=== PATIENT | female | born 1950 | race Caucasian/White ===

== ENCOUNTER 2016-05-20 21:07 | Emergency (ER) | payer OTHER ==
[2016-05-20] MEDS ORDERED: Ondansetron INJ* 2 MG/ML VIAL IV ONE (21:14)
[2016-05-20] MEDS ORDERED: NS 0.9% 1000 ML* 1,000 ML IV ONE (21:14)
--- NOTE | 2016-05-20 22:25 | ED ---
Brooks Aguilar Matthew, scribed for Rito Moore MD on 05/20/16 at 2146 . GI/ HPI - HPI Summary HPI Summary: A 66 y/o female presents to the ED with sudden dizziness since 18:30. The patient was playing scrabble with her when she had a sudden onset of dizziness. A few minutes later, she began to have associated nausea, vomiting - - 3x, and diarrhea. The symptoms started approximately 45 minutes after dinner that consisted of salmon. Her ate the same meal at home w/o symptoms. She felt fine before this episode today. - History of Current Complaint Time Seen by Provider: 05/20/16 21:11 Stated Complaint: DIZZINESS,VOMITING Hx Obtained From: Patient Onset/Duration: Started Hours Ago, Atraumatic, Still Present Timing: Constant, Lasting Hours Severity: Moderate Current Severity: Moderate Associated Signs and Symptoms: Positive: Dizziness, Nausea, Vomiting, Diarrhea - Allergy/Home Medications Allergies/Adverse Reactions: Allergies Allergy/AdvReac Type Severity Reaction Status Date / Time No Known Allergies Allergy Unverified 10/31/14 15:56 PMH/Surg Hx/FS Hx/Imm Hx Endocrine/Hematology History: Reports: Hx Thyroid Disease - hyperparathyroid gland, Other Endocrine/Hematological Disorders - hyperparathyroidism Denies: Hx Diabetes Cardiovascular History: Reports: Hx Hypercholesterolemia Denies: Hx Hypertension, Hx Pacemaker/ICD Respiratory History: Reports: Hx Sleep Apnea GI History: Reports: Hx Gall Bladder Disease History: Reports: Hx Kidney Infection - 02 02, Hx Kidney Stones Denies: Hx Renal Disease Musculoskeletal History: Reports: Hx Arthritis Sensory History: Denies: Hx Contacts or Glasses, Hx Hearing Aid Opthamlomology History: Denies: Hx Contacts or Glasses Neurological History: Reports: Hx Migraine, Other Neuro Impairments/Disorders - neuropathy Psychiatric History: Reports: Hx Depression - 2008, OK NOW Denies: Hx Panic Disorder - Cancer History Cancer Type, Location and Year: MALIGNANT MELONOMA Hx Chemotherapy: No Hx Radiation Therapy: No - Surgical History Surgery Procedure, Year, and Place: parathyroidectomy 1998 in [place]; excision of malignant melanoma 2000; left kidney stone removal; open cholecystectomy 1994 in. [place]; repair of right knee after trauma, Right Breast Stereo -Benign. GASTRIC BYPASS- [facility] 2011 Hx Anesthesia Reactions: Yes - NAUSEA AND FLU LIKE SYMPTOMS Infectious Disease History: Denies: Hx Clostridium Difficile, Hx Hepatitis, Hx Human Immunodeficiency Virus (HIV), Hx Shingles, Hx Tuberculosis, Traveled Outside the [place] in Last 30 Days - Family History Known Family History: Positive: Hypertension - Social History Alcohol Use: Rare Substance Use Type: Reports: None Smoking Status (MU): Never Smoked Tobacco Review of Systems Constitutional: Negative Eyes: Negative ENT: Negative Cardiovascular: Negative Respiratory: Negative Positive: Vomiting, Diarrhea, Nausea Genitourinary: Negative Musculoskeletal: Negative Skin: Negative Neurological: Other - Dizziness Psychological: Normal All Other Systems Reviewed And Are Negative: Yes Physical Exam Triage Information Reviewed: Yes Vital Signs On Initial Exam: Initial Vitals Temp Pulse Resp BP Pulse Ox 98.2 F 70 16 162/87 98 05/20/16 21:20 05/20/16 21:20 05/20/16 21:20 05/20/16 21:20 05/20/16 21:20 Vital Signs Reviewed: Yes Appearance: Positive: Well-Appearing, No Pain Distress Skin: Positive: Warm Eyes: Positive: EOMI, JR ENT: Positive: Hearing grossly normal Neck: Positive: Supple Respiratory/Lung Sounds: Positive: Breath Sounds Present Cardiovascular: Positive: Normal Abdomen Description: Positive: Nontender, No Organomegaly, Soft Bowel Sounds: Positive: Present Musculoskeletal: Positive: Strength/ROM Intact Neurological: Positive: Sensory/Motor Intact, Alert, Oriented to Person Place, Time Psychiatric: Positive: Normal Diagnostics - Vital Signs Vital Signs Temp Pulse Resp BP Pulse Ox 05/20/16 21:20 98.2 F 70 16 162/87 98 - Laboratory Result Diagrams: 05/20/16 22:20 05/20/16 22:20 Lab Statement: Any lab studies that have been ordered have been reviewed, and results considered in the medical decision making process. Re-Evaluation - Re-Evaluation First Eval Change: Improved - feels well, tolerating po GIGU Course/Dx - Course Assessment/Plan: A 66 y/o female presents to the ED with sudden n/v/d and dizziness 45 minutes after eating dinner. Labs were reviewed. The patient will be discharged home and follow-up with her PCP. - Diagnoses Provider Diagnoses: Gastroenteritis Discharge - Discharge Plan Condition: Improved Disposition: HOME Patient Education Materials: Gastroenteritis (ED) Referrals: Quang Layton MD [Primary Care Provider] - 2 Days Additional Instructions: Please follow-up with your primary care physician in two days. Please maintain a bland diet. The documentation as recorded by the Brooks miller Matthew accurately reflects the service I personally performed and the decisions made by me, Rito Moore MD.
[2016-05-20 22:47] LABS: Hematocrit 41 % (35-47); Hemoglobin 13.9 g/dl (12.0-16.0); Mean Corpuscular HGB Conc 34 g/dl (31-36); Mean Corpuscular Hemoglobin 30 pg (27-31); Mean Corpuscular Volume 89 fL (80-97); Mean Platelet Volume 8 um3 (7.4-10.4); Red Blood Count 4.67 10^6/ul (4.0-5.4); Red Cell Distribution Width 14 % (10.5-15); White Blood Count 10.8 10^3/ul (3.5-10.8)
[2016-05-20 23:00] LABS: Albumin 3.8 g/dL (3.2-5.2); BUN/Creatinine Ratio 19.3 (8-20); C Reactive Protein 1.57 mg/L (< 5.00); Calcium 9.5 mg/dL (8.6-10.3); EGFR African American 58.7 (>60); EGFR Non-African American 45.7 (>60); Globulin 2.6 g/dL (2-4); Magnesium 1.7 mg/dL (1.9-2.7); Potassium 4.1 mmol/L (3.5-5.0); Total Bilirubin 0.3 mg/dL (0.2-1.0); Total Protein 6.4 g/dL (6.4-8.9)
[2016-05-20 23:39] VITALS: BP 153/76
== END 2016-05-20 23:39 | disposition home or self-care (01) ==
LOC: ED 21:07
DX: R42 Dizziness and giddiness (principal); R11.2 Nausea with vomiting, unspecified; R19.7 Diarrhea, unspecified; K52.9 Noninfective gastroenteritis and colitis, unspecified
CPT/HCPCS: 36415; 80053; 83605; 83690; 83735; 85025; 86140; 96361; 96374; 99282; J2405

== ENCOUNTER 2016-05-31 10:59 | Emergency (ER) | payer OTHER ==
[2016-05-31] MEDS ORDERED: Meclizine TAB* 12.5 MG PO ONE (11:20)
--- NOTE | 2016-05-31 11:27 | UC ---
Dizzy HPI HPI Summary: SUDDEN ONSET OF DIZZINESS AND RINGING IN RIGHT EAR TODAY WHILE SITTING AT THE COMPUTER. WORSE WITH CHANGE IN HEAD POSITION BUT DOES NOT RESOLVE EVEN WHEN STILL. NO HEARING LOSS MORE THAN BASELINE. HAS SOME NAUSEA BUT NO VOMITING OR DIARRHEA. DENIES ANY NEW MEDS OR EXPOSURES. HAD A SIMILAR EPISODE 10 DAYS AGO AND WENT TO ER. LABS WERE NORMAL. WAS DX WITH GASTROENTERITIS (PT DISAGREED WITH THIS - STATES THE VOMITING WAS DUE TO THE DIZZINESS). NO FEVER. - History Of Current Complaint Chief Complaint: UCDizziness Stated Complaint: DIZZINESS Time Seen by Provider: 05/31/16 11:20 Hx Obtained From: Patient Onset/Duration: Sudden Onset, Lasting Hours, Still Present Timing: Constant Severity Initially: Moderate Severity Currently: Moderate Pain Intensity: 0 Pain Scale Used: 0-10 Numeric Character: Dizzy Aggravating Factor(s): Position Change, Change In Head Position Alleviating Factor(s): Nothing Associated Signs And Symptoms: Positive: Nausea, Tinnitus, Unsteady Gait. Negative: Vomiting, Chest Pain, SOB, Palpitations, Visual Changes - Allergies/Home Medications Allergies/Adverse Reactions: Allergies Allergy/AdvReac Type Severity Reaction Status Date / Time No Known Allergies Allergy Unverified 05/31/16 11:15 Home Medications: Home Medications Butalb/Acetamin/Caff TAB* [Fioricet TAB*] 1 tab PO Q6H PRN 05/31/16 [History Confirmed 05/31/16] PMH/Surg Hx/FS Hx/Imm Hx Endocrine History Of: Reports: Thyroid Disease - hyperparathyroid gland - PARATHYROIDECTOMY 1998 Denies: Diabetes Cardiovascular History Of: Denies: Hypertension, Pacemaker/ICD GI/ History Of: Reports: Gall Bladder Disease, Kidney Stones Denies: Renal Disease Neurological History Of: Reports: Migraine Psychological History Of: Reports: Depression - 2008, OK NOW Cancer History Of: Denies: Breast Cancer - Surgical History Surgical History: Yes Surgery Procedure, Year, and Place: parathyroidectomy 1998 in [place]; excision of malignant melanoma 2000; left kidney stone removal; open cholecystectomy 1994 in. [place]; repair of right knee after trauma, Right Breast Stereo -Benign. GASTRIC BYPASS- [facility] 2011 - Family History Known Family History: Positive: Hypertension - Social History Alcohol Use: None Substance Use Type: None Smoking Status (MU): Never Smoked Tobacco Review of Systems Constitutional: Fatigue, Other - DIZZY Respiratory: Negative Cardiovascular: Negative Gastrointestinal: Other - NAUSEA Neurological: Other - DIZZY All Other Systems Reviewed And Are Negative: Yes Physical Exam Triage Information Reviewed: Yes Appearance: No Pain Distress, Well-Nourished, Other: - APPEARS FATIGUED Vital Signs: Initial Vital Signs Temp 97.3 F 05/31/16 11:10 Pulse 60 05/31/16 11:10 Resp 20 05/31/16 11:10 BP 191/90 05/31/16 11:10 Pulse Ox 99 05/31/16 11:10 Vital Signs Reviewed: Yes Eyes: Positive: Conjunctiva Clear ENT: Positive: Hearing grossly normal, Pharynx normal, TMs normal Neck: Positive: Supple, Nontender, No Lymphadenopathy Respiratory Exam: Normal Cardiovascular Exam: Normal Abdomen Description: Positive: Soft Musculoskeletal: Positive: No Edema Neurological: Positive: Alert, Other: - CN II-XII GROSSLY INTACT BILATERALLY. NEG PRONATOR DRIFT. FINGER TO NOSE INTACT BILATERALLY. HEEL TO [place] INTACT BILATERALLY. RAPID ALTERNATING MVMTS INTACT. 5/5 STRENGTH Psychological: Positive: Normal Response To Family, Age Appropriate Behavior Skin: Negative: rashes Dizzy Course/Dx - Course Course Of Treatment: CALLED DR. COATS - APPT JUNE 30 AT 11AM AT [facility] [address] HEAD - PT DECLINED AND STATES SHE IS GOING DIRECTLY TO PCP DR. LAYTON'S OFFICE FROM HERE. STATES SHE IS FEELING BETTER NOW. REPEAT BP 165/ 90. RX FOR MECLIZINE AND ZOFRAN. - Differential Dx/Diagnosis Provider Diagnoses: 1. DIZZINESS. 2. ELEVATED BP Discharge - Discharge Plan Condition: Stable Disposition: HOME Prescriptions: Meclizine HCl [Meclizine 25] 25 mg PO TID PRN #30 tab PRN Reason: Dizziness Ondansetron ODT TAB* [Zofran Odt TAB*] 4 mg PO Q6H PRN #20 tab.odt PRN Reason: Nausea/Vomiting Patient Education Materials: Dizziness (ED) Referrals: Quang Layton MD [Primary Care Provider] - (GO DIRECTLY TO DR. LAYTON'S OFFICE FROM HERE) Additional Instructions: GO DIRECTLY TO DR. LAYTON'S OFFICE FROM HERE FOR BP EVALUATION. BP ON ARRIVAL 191/90. REPEAT BP 165/90. WE HAVE SCHEDULED AN APPT FOR YOU WITH DR. COATS. JUNE 30 AT 11AM AT [facility] [address].
[2016-05-31 12:06] VITALS: BP 165/90
== END 2016-05-31 12:12 | disposition home or self-care (01) ==
LOC: UCEAST 10:59
DX: R42 Dizziness and giddiness (principal); R03.0 Elevated blood-pressure reading, without diagnosis of hypertension; R11.0 Nausea; Z90.49 Acquired absence of other specified parts of digestive tract; Z98.84 Bariatric surgery status
CPT/HCPCS: 99212; A9270-GY; G0463

== ENCOUNTER 2018-03-27 05:27 | Inpatient (IN) | payer OTHER, MEDICARE ==
--- NOTE | 2018-03-21 20:48 | HP ---
HISTORY AND PHYSICAL: DATE OF ADMISSION: 03/27/[address] coming into [facility] on 03/27/18 for a right total knee replacement. CHIEF COMPLAINT: Right knee pain. HISTORY OF PRESENT ILLNESS: The patient has had many years of right knee difficulties and pain and now progressive disability with severe arthritis of the right patella. She has had nonoperative care over many years including cortisone injections and the nonoperating care has been no longer helpful and knee replacement has been recommended. PAST MEDICAL HISTORY: She has had hyperparathyroidism with parathyroid surgery in 1998. She has had renal stones with removal of renal stones by Dr. Berkowitz. The patient has no history of DVT or pulmonary embolism. No history of heart attack or chest pain felt to be related to her heart. She has had bronchitis 2 years ago and pneumonia in 2017. She does not smoke. She has sips of alcoholic beverages occasionally. She has had cancer of the skin only. No bleeding tendencies. No allergies. MEDICATIONS: Her daily medications include: 1. Allopurinol 300 mg each day to discourage the formation of kidney stones. 2. Potassium bicarbonate 25 mg twice a day morning and evening. 3. Hydrochlorothiazide 25 mg is taken each day to help with migraines. 4. As needed for migraine, she takes bpphwi-Eyrajud-mehquasb 50/300/40 as needed. 5. For vertigo migraine, she will add Zofran 4 mg for nausea and meclizine 25 mg for dizziness both as needed. 6. She had a urinary tract infection on 03/08/18, she was on Bactrim for that. 7. As needed, she uses Aleve, Flintstones Vitamins, vitamin B12 and vitamin D. SOCIAL HISTORY: The patient lives with her . She has 3 floors, but her home is setup so that she can be living on one floor after her knee replacement. PHYSICAL EXAMINATION GENERAL: Well nourished, well developed, not acutely distressed. She is limping on the right side. VITAL SIGNS: The temp is 98.5, blood pressure 138/92, pulse is 68, weight 203. EXTREMITIES: The right knee has some valgus with extension -2 to 3 degrees, flexion 115 degrees. There is some tenderness anteriorly and laterally. There is anterior crepitations. MCL and LCL are stable. [place] and posterior drawer are normal. The thigh and calf are soft and nontender. NEUROVASCULAR: The foot is intact. IMPRESSION: Severe right knee patellar arthritis. There is moderate arthritis in the lateral compartment. PLAN: The plan is for her right total knee replacement. The goals, risks, and complications have been reviewed with the patient and her questions were answered. [id number]/CPS #: [id number] MTDD
[~2018-03-27 05:27] MED LIST: Buffered Lidocaine 0.9% SYRIN* 5 ML/SYR SYRINGE INTRADERM ONE; Ondansetron TAB* 4 MG PO ONE; Tranexamic Acid 1,000 MG in NS 0.9% 50 ML* (outpatient use) IV SCH
--- OUTSIDE RECORDS SUMMARY | 2018-03-27 05:31 | XMS REPORT | Continuity of Care Document ---
:1950 External Reference #:[id number] Author Name Jossie Lozano Care Team Providers Name Role Phone Santiago Layton MD Primary Care Physician Unavailable Payers Type Date Identification Numbers Payment Provider Subscriber Policy Number: [id number] [employer] Montse Fuchs Group Number: [id number] [address] PayID: [id number] [place] [address] Advance Directives Description No Information Available Problems Date Description Provider Status Onset: 06/30/2016 Idiopathic progressive polyneuropathy Brian Conti M.D. 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 ETOH Use Denies alcohol use Tobacco Use Start: Unknown Patient has never smoked Smoking Status Reviewed: 03/21/18 Patient has never smoked Exercise Type/Frequency Does not exercise Allergies, Adverse Reactions, Alerts Description No Known Drug Allergies Medications Medication Date Status Form Strength Qnty SIG Indications Ordering Provider Allopurinol Active Tablets 300mg 90tab 1 by mouth Unknown /0000 s every day Potassium Citrate Active Tablets 10Meq 90tab take one Unknown ER /0000 ER (1080 mg) s tablet twice daily Multivitamins Active Capsules 30cap 1 by mouth Unknown /0000 s every day Vitamin B-12 Active Tablets 1000mcg 90tab po once a Unknown /0000 s day Vitamin D Active Tablets 25mcg 30tab by mouth Unknown /0000 s everyday Hydrochlorothiazid Active Tablets 25mg 1 by mouth Unknown e /0000 every day Aleve Active Tablets 220mg 1 by mouth Unknown /0000 twice a day Butalbital/Acetami Active Capsules 50-300-40 take 1 Unknown nophen/Caffeine /0000 mg capsule by mouth AT Onset Of Migraine Up To twice a day if need Meclizine HCL Active Tablets 25mg 1 tablet Unknown /0000 every 8 hours as needed for vertigo Ondansetron HCL Active Tablets 4mg one by Unknown /0000 mouth every 8 hours as needed for nausea Bactrim Active Tablets 400-80mg 1/2 tab by Unknown /0000 mouth once daily Magnesium-Oxide 08/25 Hx Tablets 400(241.3 90tab 1 every day G43.109 Brian mg) mg s Gallito - M.DBailey 03/20 Percocet 10/11 Hx Tablets 5-325mg 14tab 1/2 or 1 by M17.11 Dir s mouth every Ebony, - 8 hours as M.D. 06/30 needed pain Fioricet 11/19 Hx Capsules 50-300-40 24cap 1 by mouth Brian Pichardo mg s twice a day Gallito, - as needed M.D. 03/12 headache max 2 days/wk Magnesium Oxide 11/19 Hx Tablets 400(241.3 90tab 1 every day Bailey Mg) mg s Nishi Conti M.D. 08/24 Riboflavin 11/19 Hx Tablets 400mg 100ta 1 po qd bs Nishi Conti M.DBailey 08/24 Advil Hx Capsules 200mg 200ca 4 caps po Unknown /0000 ps prn - 06/30 Lumigan Hx Unknown /0000 - 08/24 Lumigan Hx Solution 0.01% one drop at Unknown /0000 the base of - three 03/20 fingernails /2017 qd Azithromycin Hx Tablets 250mg take 2 Unknown /0000 tablets by - mouth on 03/20 day 1 then take 1 tablet on days 2 through Methylprednisolone Hx TBPK 4mg take as Unknown /0000 directed on - pack 03/20 Proair HFA 00/00 Hx Aerosol 108(90Bas inhale 2 Unknown /0000 e) puffs by - mcg/Act mouth every 03/20 4 to hours if needed for cough Medications Administered in Office Medication Date Status Form Strength Qnty SIG Indications Ordering Provider Depomedrol Administered Injection Dirk Ebony, 40MG 018 M.D. Depomedrol Administered Injection Dirk Ebony, 40MG 018 M.D. Depomedrol Administered Injection Dirk Ebony, 40MG 017 M.D. Depomedrol Administered Injection Dirk Ebony, 40MG 016 M.D. Depomedrol Administered Injection Dirk Ebony, 40MG 016 M.D. Depomedrol Administered Injection Monalisa 40MG 015 Liptak, RPA-C Depomedrol Administered Injection Dirk Ebony, 80MG 015 M.D. Immunizations Description No Information Available Vital Signs Date Vital Result Comment 03/21/2018 9:09am Height 66 inches 5'6" Weight 203.00 lb w/o shoes Heart Rate 68 /min BP Systolic Sitting 138 mmHg Lue lg cuff BP Diastolic Sitting 92 mmHg Lue lg cuff Body Temperature 98.5 F Pain Level 2 BMI (Body Mass Index) 32.8 kg/m2 01/01/2018 8:27am Height 66 inches 5'6" Weight 190.00 lb Heart Rate 74 /min BP Systolic 124 mmHg BP Diastolic 80 mmHg Respiratory Rate 18 /min Pain Level 2 BMI (Body Mass Index) 30.7 kg/m2 07/05/2017 2:28pm Height 66 inches 5'6" Weight 190.00 lb BP Systolic 124 mmHg BP Diastolic 82 mmHg Respiratory Rate 18 /min Pain Level 3 BMI (Body Mass Index) 30.7 kg/m2 05/08/2017 9:29am Height 66 inches 5'6" Weight 190.00 lb BP Systolic 126 mmHg BP Diastolic 126 mmHg Respiratory Rate 18 /min Pain Level 0 BMI (Body Mass Index) 30.7 kg/m2 04/03/2017 8:47am Height 66 inches 5'6" Weight 190.00 lb Heart Rate 68 /min BP Systolic 130 mmHg BP Diastolic 90 mmHg Respiratory Rate 16 /min Body Temperature 97.6 F Pain Level 0 BMI (Body Mass Index) 30.7 kg/m2 03/13/2017 3:37pm Height 66 inches 5'6" Weight 190.00 lb BP Systolic 122 mmHg BP Diastolic 84 mmHg Respiratory Rate 20 /min Body Temperature 97.4 F Pain Level 3 BMI (Body Mass Index) 30.7 kg/m2 08/25/2016 9:12am Height 66 inches 5'6" Weight 206.00 lb Heart Rate 78 /min BP Systolic Sitting 130 mmHg BP Diastolic Sitting 70 mmHg Respiratory Rate 16 /min BMI (Body Mass Index) 33.2 kg/m2 06/30/2016 11:05am Height 66 inches 5'6" Weight 206.12 lb Heart Rate 88 /min BP Systolic Sitting 130 mmHg BP Diastolic Sitting 80 mmHg BMI (Body Mass Index) 33.3 kg/m2 10/12/2015 9:37am Height 66 inches 5'6" Weight 190.00 lb Pain Level 6 BMI (Body Mass Index) 30.7 kg/m2 08/26/2015 1:45pm Height 66 inches 5'6" Weight 190.00 lb Heart Rate 61 /min BP Systolic 156 mmHg BP Diastolic 85 mmHg BMI (Body Mass Index) 30.7 kg/m2 04/01/2015 9:09am Height 66 inches 5'6" Weight 190.00 lb Pain Level 1 BMI (Body Mass Index) 30.7 kg/m2 12/15/2014 8:46am Height 66 inches 5'6" Weight 190.00 lb Heart Rate 79 /min BMI (Body Mass Index) 30.7 kg/m2 11/19/2013 8:44am Height 66 inches 5'6" Weight 180.00 lb Heart Rate 68 /min BP Systolic Sitting 138 mmHg BP Diastolic Sitting 80 mmHg Respiratory Rate 16 /min BMI (Body Mass Index) 29.0 kg/m2 Results Test Date Facility Test Result H/L Range Note Urine Culture And 03/19/2018 [facility] Urine Culture SEE RESULT [address] [place] [address] [phone] CBC Auto Diff 03/13/2018 [facility] White Blood 6.6 10^3/uL N 3.5-10.[address] [place] [address] [phone] Red Blood Count 4.57 10^6/uL N 4.00-5.40 Hemoglobin 14.1 g/dL N 12.0-16.0 Hematocrit 41 % N 35-47 Mean Corpuscular Volume 90 fL N 80-97 Mean Corpuscular Hemoglobin 31 pg N 27-31 Mean Corpuscular HGB Conc 34 g/dL N 31-36 Red Cell Distribution Width 15 % N 10.5-15 Platelet Count 214 10^3/uL N 150-450 Mean Platelet Volume 7.3 fL Low 7.4-10.4 Abs Neutrophils 3.2 10^3/uL N 1.5-7.7 Abs Lymphocytes 2.7 10^3/uL N 1.0-4.8 Abs Monocytes 0.4 10^3/uL N 0-0.8 Abs Eosinophils 0.2 10^3/uL N 0-0.6 Abs Basophils 0 10^3/uL N 0-0.2 Abs Nucleated RBC 0 10^3/uL Granulocyte % 48.9 % N 38-83 Lymphocyte % 40.4 % N 25-47 Monocyte % 6.3 % N 0-7 Eosinophil % 3.8 % N 0-6 Basophil % 0.6 % N 0-2 Nucleated Red Blood Cells % 0.1 Inr/Protime 03/13/2018 [facility] Inr 0.86 N 0.77-1.[address] [place] [address] [phone] Laboratory test 03/13/2018 [facility] Partial 33.1 seconds N 26.0-36.[address] [place] [address] PTT [phone] Type & Screen 03/13/2018 [facility] Patient O Positive [address] [place] [address] [phone] Antibody Screen NEGATIVE Comp Metabolic Panel 03/13/2018 [facility] Sodium 140 mmol/L N 135-[address] [place] [address] [phone] Potassium 4.1 mmol/L N 3.5-5.0 Chloride 105 mmol/L N 101-111 Co2 Carbon Dioxide 28 mmol/L N 22-32 Anion Gap 7 mmol/L N 2-11 Glucose 103 mg/dL High 70-100 Blood Urea Nitrogen 29 mg/dL High 6-24 Creatinine 1.85 mg/dL High 0.51-0.95 BUN/Creatinine Ratio 15.7 N 8-20 Calcium 10.4 mg/dL High 8.6-10.3 Total Protein 6.5 g/dL N 6.4-8.9 Albumin 4.2 g/dL N 3.2-5.2 Globulin 2.3 g/dL N 2-4 Albumin/Globulin Ratio 1.8 N 1-3 Total Bilirubin 0.30 mg/dL N 0.2-1.0 Alkaline Phosphatase 71 U/L N 34-104 Alt 19 U/L N 7-52 Ast 21 U/L N 13-39 Egfr Non- 27.4 >60 Egfr 33.1 >60 2 Urinalysis Profile 03/13/2018 [facility] Urine Color Yellow [address] [place] [address] [phone] Urine Appearance Cloudy Urine Specific Mercer 1.016 N 1.010-1.030 Urine pH 7.0 N 5-9 Urine Urobilinogen Negative Negative Urine Ketones Negative Negative Urine Protein Negative Negative Urine Leukocytes Trace Abnormal Negative Urine Blood Negative Negative * * Abnormal Negative 3 Urine Nitrite Negative Negative Urine Bilirubin Negative Negative Urine Glucose Negative Negative Urine White Blood Cell Trace(0-5/hpf) Absent Urine Red Blood Cell Trace(0-2/hpf) Absent Urine Bacteria Absent Absent Urine Squamous Epithelial Cell Present Abnormal Absent Urine Culture And 03/13/2018 [facility] Urine Culture SEE RESULT [address] [place] [address] [phone] Creatinine 07/01/2016 [facility] Creatinine 1.23 mg/dL High 0.51- [address] 0[address] [place] [address] [phone] Egfr Non- 44.0 N >60 Egfr 56.5 N >60 5 Laboratory test 07/01/2016 [facility] Thyroglobulin AB <1.8 IU/ mL N <4.0 [address] [place] [address] [phone] Miscellaneous Test See Comment N 7 Thyroid Panel 07/01/2016 [facility] Free T4 (Free 0.97 ng/dL N 0.61-1.[address] Thyroxine) [place] [address] [phone] Thyroxine 9.09 ?g/dL N 6.09-12.23 9 TSH (Thyroid Stim Horm) 1.72 mcIU/mL N 0.34-5.60 10 Laboratory test 07/01/2016 [facility] Nuclear AB <1:80 (Negative ) N [address] ([place]) [place] [address] Igg [phone] Anti Ssa/Ro Antibody <0.2 U N 12 SS-B/La Antibody <0.2 U N 13 Neutrophil Cytoplasmic 07/01/2016 [facility] C-Anca Negative N Negative AB [address] [place] [address] [phone] P-Anca Negative N Negative 14 Lipoprotein 07/01/2016 [facility] Lipoprotein <6 mg/dL N <=30 15 Profile/[place] Lp(a) [address] [place] [address] [phone] 1 SEE RESULT BELOW Name: MONTSE FUCHS : [address]: Micky Berkowitz MD Acct: [id number] Unit: [id number] AGE: 67 Location: LAB Re03/19/18 SEX: F Status: REG REF SPEC: [id number] CHARLY: 03/19/[address]: Micky Berkowitz MD REQ: [id number] RECD: 03/19/18 STATUS: COMP OTHR DR: Juno Beck MD _ SOURCE: URINE SPDESC: ORDERED: Urine Culture QUERIES: Urine Source: Clean Catch Procedure Result Reported Site Urine Culture Final 03/20/18- 12 ML No Growth (<1,000 CFU/mL) * ML - Main Lab . END OF REPORT DEPARTMENT OF PATHOLOGY, [address] [place] [address] Edilberto Jacobson M.D. Director [facility] # [id number] 2 Because ethnic data is not always readily available, this report includes an eGFR for both -Americans and non- Americans. The National Kidney Disease Education Program (NKDEP) does not endorse the use of the MDRD equation for patients that are not between the ages of 18 and 70, are , have extremes of body size, muscle mass, or nutritional status, or are non- or non-. According to the National Kidney Foundation, irrespective of diagnosis, the stage of the disease is based on the level of kidney function: Stage Description GFR(mL/min/1.73 m(2)) 1 Kidney damage with normal or decreased GFR 90 2 Kidney damage with mild decrease in GFR 60-89 3 Moderate decrease in GFR 30-59 4 Severe decrease in GFR 15-29 5 Kidney failure <15 (or dialysis) 3 *Ascorbic acid is present which may interfere with detection of blood. 4 SEE RESULT BELOW Name: MONTSE FUCHS : [address]: Juno Beck MD Acct: [id number] Unit: [id number] AGE: 67 Location: [facility] Re03/13/18 SEX: F Status: REG REF SPEC: [id number] CHARLY: 03/13/18 [facility] DR: Juno Beck MD REQ: [id number] RECD: 03/13/18 STATUS: COMP _ SOURCE: URINE SPDESC: ORDERED: Urine Culture QUERIES: Urine Source: Clean Catch Procedure Result Reported Site Urine Culture Final 03/14/18- 0848 ML No Growth (<1,000 CFU/mL) * ML - Main Lab . END OF REPORT DEPARTMENT OF PATHOLOGY, [address] [place] [address] Edilberto Jacobson M.D. Director [facility] # [id number] 5 Because ethnic data is not always readily available, this report includes an eGFR for both -Americans and non- Americans. The National Kidney Disease Education Program (NKDEP) does not endorse the use of the MDRD equation for patients that are not between the ages of 18 and 70, are , have extremes of body size, muscle mass, or nutritional status, or are non- or non-. According to the National Kidney Foundation, irrespective of diagnosis, the stage of the disease is based on the level of kidney function: Stage Description GFR(mL/min/1.73 m(2)) 1 Kidney damage with normal or decreased GFR 90 2 Kidney damage with mild decrease in GFR 60-89 3 Moderate decrease in GFR 30-59 4 Severe decrease in GFR 15-29 5 Kidney failure <15 (or dialysis) 6 ADDITIONAL INFORMATION The thyroglobulin antibody testing method is an immunoenzymatic assay manufactured by [employer] and performed on the [employer] DXI 800. Values obtained from different assay methods or kits may be different and cannot be used interchangeably. The results cannot be interpreted as absolute evidence for the presence or absence of malignant disease. Test Performed by: [address] [address] 7 Test Result Flag Unit RefValue Fatty Acid Profile, Comprehensive,S Octanoic Acid, C8:0 8 nmol/mL 8-47 Decenoic Acid, C10:1 2.5 nmol/mL 1.8-5.0 Decanoic Acid, C10:0 7 nmol/mL 2-18 Lauroleic Acid, C12:1 3.5 nmol/mL 1.4-6.6 Lauric Acid, C12:0 35 nmol/mL 6-90 Tetradecadienoic Acid, 2.0 nmol/mL 0.8-5.0 C14:2 Myristoleic Acid, C14:1 49 nmol/mL 3-64 Myristic Acid, C14:0 341 nmol/mL 30-450 Hexadecadienoic Acid, 28 nmol/mL 10-48 C16:2 Hexadecenoic Acid, 99 nmol/mL 25-105 C16:1w9 Palmitoleic Acid, 562 nmol/mL 110-1130 C16:1w7 Palmitic Acid, C16:0 3517 nmol/mL 5782-5973 g-Linolenic Acid, 79 nmol/mL 16-150 C18:3w6 a-Linolenic Acid, 98 nmol/mL 50-130 C18:3w3 Linoleic Acid, C18:2w6 3058 nmol/mL 6647-7387 Oleic Acid, C18:1w9 3096 nmol/mL 650-3500 Vaccenic Acid, C18:1w7 420 nmol/mL 280-740 Stearic Acid, C18:0 1118 nmol/mL 590-1170 EPA, C20:5w3 74 nmol/mL 14-100 Arachidonic Acid, 733 nmol/mL 520-1490 C20:4w6 Gambell Acid, C20:3w9 27 nmol/mL 7-30 e-t-Tvnhatqtu Acid, 159 nmol/mL 50-250 C20:3w6 Arachidic Acid, C20:0 37 L nmol/mL 50-90 DHA, C22:6w3 229 nmol/mL 30-250 DPA, C22:5w6 43 nmol/mL 10-70 DPA, C22:5w3 75 nmol/mL 20-210 DTA, C22:4w6 40 nmol/mL 10-80 Docosenoic Acid, C22:1 8 nmol/mL 4-13 Docosanoic Acid, C22:0 75.1 nmol/mL 0.0-96.3 Nervonic Acid, C24:1w9 88 nmol/mL 60-100 Tetracosanoic Acid, 53.3 nmol/mL 0.0-91.4 C24:0 Hexacosenoic Acid, C26:1 0.4 nmol/mL 0.3-0.7 Hexacosanoic Acid, C26:0 0.53 nmol/mL 0.00-1.30 Pristanic Acid, 0.25 nmol/mL 0.00-2.98 C15:0(CH3)4 Phytanic Acid, 1.51 nmol/mL 0.00-9.88 C16:0(CH3)4 Triene Tetraene Ratio 0.037 REFERENCE VALUE 0.010-0.038 Total Saturated 5.2 mmol/L 2.5-5.5 Total Monounsaturated 4.3 mmol/L 1.3-5.8 Total Polyunsaturated 4.6 mmol/L 3.2-5.8 Total w3 0.5 mmol/L 0.2-0.5 Total w6 4.1 mmol/L 3.0-5.4 Total Fatty Acids 14.2 mmol/L 7.3-16.8 Interpretation See Comment In this sample, the fatty acid profile was essentially normal. ADDITIONAL INFORMATION Gas Chromatography-Mass Spectrometry (GC-MS) Stable Isotope Dilution Analysis This test was developed and its performance characteristics determined by [facility] in a manner consistent with CLIA requirements. This test has not been cleared or approved by the U.S. Food and Drug Administration. Test Performed by: [facility] - [address] [address] 8 Copy Result to: SANTIAGO LAYTON ([id number]) 9 Copy Result to: SANTIAGO LAYTON ([id number]) 10 Copy Result to: SANTIAGO LAYTON ([id number]) 11 <1:80 (Negative) REFERENCE VALUE <1:80 (Negative) Test Performed by: [facility] - [address] [address] 12 REFERENCE VALUE <1.0 (Negative) Test Performed by: [facility] - [address] [address] 13 REFERENCE VALUE <1.0 (Negative) Test Performed by: [address] [address] 14 Negative for cANCA and pANCA patterns by immunofluorescence. ADDITIONAL INFORMATION This test was developed and its performance characteristics determined by [facility] in a manner consistent with CLIA requirements. This test has not been cleared or approved by the U.S. Food and Drug Administration. Test Performed by: [address] [address] Test Performed by: [address] [address] Procedures Date Code Description Status 01/01/2018 Inject/Drain Joint/Bursa Major W/O US Completed 07/05/2017 Inject/Drain Joint/Bursa Major W/O US Completed 04/03/2017 37585 FX Patella Care Completed 03/13/2017 Inject/Drain Joint/Bursa Major W/O US Completed 06/14/2016 33682 Holter Monitor Review (24 hr)dr review & interp only Completed 06/13/2016 69529 ECG Monitor/Recording W/Visual Superimposition Scanning Completed 06/10/2016 85173253 Mammogram Completed 10/12/2015 Inject/Drain Joint/Bursa Major W/O US Completed 08/26/2015 Inject/Drain Joint/Bursa Major W/O US Completed 04/01/2015 Inject/Drain Joint/Bursa Major W/O US Completed 12/15/2014 Inject/Drain Joint/Bursa Major W/O US Completed 03/21/2012 79423 EKG, Interpretation Only Completed 11/18/2011 69920 Polysomnography Sleep Staging 4+ Parameters W/Cpap Completed 12/23/2008 98084 ECHO Transthorasic Realtime 2D W Doppler & Color Flow Completed Hosp Encounters Type Date Location Provider Dx Diagnosis Office Visit 01/01/2018 Orthopedic Juno Beck M.D. M17.11 Unilateral primary 8:30a [facility] oste[facility], right knee Office Visit 07/05/2017 Poly Beck M.D. M17.11 Unilateral primary 2:15p [facility] osteoarthritis, right knee S82.001D Unsp fx right patella, subs for clos fx w routn heal Office Visit 08/25/2016 Neurohospitalist Brian Pichardo G60.3 Idiopathic 9:00a Clinic Malinda Conti progressive neuropathy G43.109 Migraine with aura, not intractable, w/o status migrainosus H93.19 Tinnitus, unspecified ear Office Visit 06/30/2016 Neurohospitalist Brian Pichardo G60.3 Idiopathic 11:00a Clinic [facility] Conti progressive neuropathy R42 Dizziness and giddiness H90.3 Sensorineural hearing loss, bilateral G43.109 Migraine with aura, not intractable, w/o status migrainosus Office Visit 10/12/2015 Orthopedic Dirk Ebony, M17.11 Unilateral primary 9:30a [facility] osteoarthritis, right [facility] knee Office Visit 04/01/2015 Orthopedic Monalisa M17.11 Unilateral primary 9:00a [facility] osteoarthritis, right [facility] knee Office Visit 12/15/2014 Orthopedic Juno Beck, 715.96 Osteoarthrosis Unspec 8:30a [facility] Lower Leg Office Visit 11/19/2013 [place] Brian Jorge ABailey 346.00 Migraine Classical 8:30a Neurologic Malinda Conti W/O Intractable W/O [facility] Status Migrainosus 356.4 Polyneuropathy Idiopathic Progress Office Visit 11/25/2011 3:53p Azar Rivera 327.23 Obstructive Sleep Disorder [facility] Askew Apnea Adult & Pediatric V67.59 Exam Follow Up Other Office Visit 10/28/2011 11:48a Azar Rivera 786.09 Dyspnea & Disorder [facility] Abnormalities Other 780.1 Hallucinations Office Visit 12/24/2008 12:15a [facility] Serg 682.6 Cellulitis & Assoc,pc Malinda So Abscess Leg Hospitalists Except Foot Office Visit 12/22/2008 12:45a [facility] Willa Moreno 682.9 Cellulitis & Assoc,carmen Petty Abscess Unspec Hospitalists Site Plan of Treatment Future Appointment(s):04/25/2018 10:30 am - Juno Beck M.D. at [facility]03/27/2018 7:30 am - MELISSA Ackerman at [facility]03/27/2018 7:30 am - Juno Beck M.D. at [facility]
[2018-03-27] MEDS ORDERED: DiMENhydriNATE IV* 50 MG/ML VIAL IV PUSH PRN (05:45)
[2018-03-27] MEDS ORDERED: Naloxone* 0.4 MG/ML 1 ML VIAL IV PRN (05:45)
[2018-03-27] MEDS ORDERED: Morphine VIAL* 4 MG/ML VIAL (1 ml vial) IV PRN ×2 (05:45→11:13)
[2018-03-27] MEDS ORDERED: PROCHLORPERAZINE INJ 5 MG/ML 2 ML VIAL IV PRN (05:45)
[2018-03-27] MEDS ORDERED: oxyCODONE/Acetamin 5/325 MG* TAB PO PRN ×2 (05:45→11:13)
[2018-03-27] MEDS ORDERED: fentaNYL* 50 MCG/ML 2 ML VIAL (100 MCG VIAL) IV PRN (05:45)
[2018-03-27] MEDS ORDERED: Famotidine IV* 10 MG/ML 2 ML (20 mg) IV ONE (06:00)
[2018-03-27] MEDS ORDERED: Dexamethasone TAB* 4 MG PO ONE (06:00)
[2018-03-27] MEDS ORDERED: Gabapentin CAP(*) 300 MG PO ONE (06:00)
[2018-03-27] MEDS ORDERED: Gabapentin CAP(*) 300 MG ONE (06:19)
[2018-03-27] MEDS ORDERED: Famotidine IV* 10 MG/ML 2 ML (20 mg) ONE (06:19)
[2018-03-27] MEDS ORDERED: Ondansetron ODT TAB* 4 MG ONE (06:19)
[2018-03-27] MEDS ORDERED: Dexamethasone TAB* 4 MG ONE (06:20)
[2018-03-27] MEDS ORDERED: ceFAZolin 2 GM PREMIX in ORs 2 GM/50 ML BAG IVPB ONE (06:20)
[2018-03-27] MEDS ORDERED: fentaNYL* 50 MCG/ML 2 ML VIAL (100 MCG VIAL) ONE (07:15)
[2018-03-27] MEDS ORDERED: KETAMINE HCL* 50 MG/ML 10 ML VIAL ONE (07:16)
[2018-03-27] MEDS ORDERED: Midazolam* 1 MG/ML 5 ML VIAL (5 MG) ONE (07:16)
[2018-03-27] MEDS ORDERED: Bupivacaine 0.5% W/EPI SDV* 30 ML VIAL ONE (08:58)
[2018-03-27] MEDS ORDERED: Midazolam* 1 MG/ML 2 ML VIAL (2 MG) ONE (09:40)
[2018-03-27] MEDS ORDERED: Propofol* 10 MG/ML 20 ML BTL ONE (10:59)
[2018-03-27] MEDS ORDERED: Propofol* 500 MG/50 ML BTL ONE (11:00)
[2018-03-27] MEDS ORDERED: Bupivacaine 0.5% SDV PF* 30ML VIAL ONE (11:00)
[2018-03-27] MEDS ORDERED: Phenylephrine INJ* 10 MG/ML 1 ML VIAL (10 MG) ONE (11:00)
[2018-03-27] MEDS ORDERED: Scopolamine 1.5 mg* PATCH ONE (11:00)
[2018-03-27] MEDS ORDERED: Cyclobenzaprine TAB* 10 MG PO PRN (11:13)
[2018-03-27] MEDS ORDERED: Acetaminophen TAB* 325 MG PO PRN (11:13)
[2018-03-27] MEDS ORDERED: Ondansetron ODT TAB* 4 MG PO PRN ×2 (11:13→11:25)
[2018-03-27] MEDS ORDERED: traMADol TAB* 50 MG PO PRN (11:13)
[2018-03-27] MEDS ORDERED: oxyCODONE TAB* 5 MG TAB PO PRN (11:13)
[2018-03-27] MEDS ORDERED: Ondansetron TAB* 4 MG PO PRN (11:13)
[2018-03-27] MEDS ORDERED: Docusate CAP* 100 MG PO PRN (11:21)
[2018-03-27] MEDS ORDERED: Meclizine TAB* 12.5 MG PO PRN (11:25)
[2018-03-27] MEDS ORDERED: Butalb/Acetamin/Caff TAB* 1 TAB PO PRN (11:25)
[2018-03-27] MEDS ORDERED: oxyCODONE/Acetamin 5/325 MG* TAB ONE (12:49)
[2018-03-27] MEDS: oxyCODONE/Acetamin 5/325 MG* TAB PO PRN ×3 (12:50→23:26)
[2018-03-27] MEDS: Sulfamethox/Trimethoprim SS 400/80* TAB PO SCH (14:53)
--- NOTE | 2018-03-27 15:35 | PN ---
Progress Note - Progress Note Date of Service: 03/27/18 SOAP: Patient seen POD [address] Beck. Her pain is well controlled, DF/PF intact, Dp2+. She has no complaints at this time
[2018-03-27] MEDS: ceFAZolin 1 GM in Dextrose (*) 1 GM/50 ML BAG IVPB SCH (19:14)
[2018-03-27] MEDS: Potassium EFFERVESCENT TAB* 25 MEQ TAB.EFF PO SCH (20:58)
[2018-03-27] MEDS: Hydrochlorothiazide TAB* 25 MG PO SCH (20:59)
[2018-03-28] MEDS: ceFAZolin 1 GM in Dextrose (*) 1 GM/50 ML BAG IVPB SCH ×2 (02:16→09:54)
[2018-03-28] MEDS: oxyCODONE/Acetamin 5/325 MG* TAB PO PRN ×4 (03:55→21:33)
[2018-03-28 06:58] LABS: Hematocrit 37 % (35-47); Hemoglobin 12.5 g/dl (12.0-16.0); Mean Platelet Volume 7.3 fL (7.4-10.4); Platelet Count 175 10^3/ul (150-450)
[2018-03-28 07:26] LABS: EGFR Non-African American 40.7 (>60)
--- NOTE | 2018-03-28 08:19 | PN ---
Progress Note - Progress Note Date of Service: 03/28/18 Note: VSStable. Awake, alert, cooperative, breathing easily. X-ray post op right knee all satisfactory. I and O are good. Hct 37%. She has renal insufficiency. 2 drains removed right knee, dressing is dry. Able to lift right leg and move right ankle up and down, DP pulse is 2 plus right. Impression: Doing well following right total knee. Plans: Drinking, incentive spirometer and up with walker.
[2018-03-28] MEDS: Potassium EFFERVESCENT TAB* 25 MEQ TAB.EFF PO SCH ×2 (09:06→21:33)
[2018-03-28] MEDS: Multivitamins/Minerals TAB PO SCH (09:06)
[2018-03-28] MEDS: Allopurinol TAB* 300 MG PO SCH (09:06)
[2018-03-28] MEDS: Aspirin TAB* 325 MG PO SCH (09:06)
[2018-03-28] MEDS: Cyanocobalamin TAB* 500 MCG PO SCH (09:06)
[2018-03-28] MEDS: Sulfamethox/Trimethoprim SS 400/80* TAB PO SCH (09:54)
--- NOTE | 2018-03-28 13:13 | OP ---
CC: Dr. Layton * DATE OF OPERATION: 03/27/18 - ROOM #334 DATE OF : 54 SURGICAL CARE: Right knee. SURGEON: Juno Beck MD ASSISTANTS: 1. MELISSA Ackerman, first aid teacher. 2. Yanira Kaba, certified surgical assistant. ANESTHESIOLOGIST: Dr. Rito Weaver. ANESTHESIA: Right femoral canal block and spinal. PRE-OP DIAGNOSIS: Right knee severe arthritis, patellar and lateral. POST-OP DIAGNOSIS: Right knee severe arthritis, patellar and lateral. OPERATIVE PROCEDURE: Right total knee replacement. COMPONENTS UTILIZED: The Kemar Persona knee was utilized. All components were cemented. A size 7 femur, a size 35 patella, a size E tibia with a small extension and a 10 mm articular surface. All components were cemented. COMPLICATIONS: There were no complications. DRAINS: Two drains right knee at the end of the case. ESTIMATED BLOOD LOSS: 200 mL and replacement crystalloid fluids. OPERATIVE INDICATION: Severe arthritis of the right knee. She has had it for many years. It has been no longer responsive to nonoperative care. DESCRIPTION OF PROCEDURE: The patient was brought to the operating room and placed on the operating room table in a supine position following the administration of the anesthetics. The patient was returned to the supine position. A Magaña catheter was inserted. The right proximal thigh was wrapped with a tourniquet. The right leg was prepped from the tourniquet to the tips of the toes after a preliminary chlorhexidine prep. After prepping, draping, and sealing off, we did our universal protocol time-out confirming Montse Fuchs and a plan for right total knee replacement. We all agreed and we proceeded. Her previous right knee skin incision was utilized for this surgery going from just 2 fingerbreadths proximal to the superior pole of the patella to the medial aspect of the tibial tubercle. Skin and subcu were divided down to the prepatellar bursa. The knee was then entered medial parapatellar and the knee had some clear synovial fluid, yellowish. The anteromedial soft tissues on the tibia were divided down to the bone 2 cm medial to the tibial tubercle. We stayed subperiosteally or going around to the deep MCL and then to the posteromedial corner of the knee. Where we entered the knee medial parapatellar, there was some bone fragment in the soft tissues that was excised, this was from old patellar dislocation laterally where the medial bone had pulled off. The quad tendon was divided at the junction of the rectus femoris and the vastus medialis, staying as close to vastus medialis muscle as possible going 3 to 4 cm proximal to the superior pole of the patella. The patient had severe patellar arthritis with woqy-oj-murj, large osteophytes on the patella and the lateral femoral condyle. There was severe arthritis in the lateral compartment as well with umsv-xv-ouyl and osteophytes. The remains of the anterior horn of the medial meniscus were carefully excised. The infrapatellar fat pad was excised. The osteophytes on the patella and trochlea removed. The distal anterior femur was exposed subperiosteally for referencing and measuring. The lateral meniscus was carefully excised with careful attention to hemostasis in the region of the lateral geniculate. The ACL and PCL were uplifted from their femoral origins. The tibia was made so that it could be subluxated forward from under femur and the PCL was carefully excised. Great care was taken while working posteriorly with careful hemostasis. The proximal tibial cut was made first. Our goal here was to have a tibial cut that would be perpendicular to the long axis of the tibia, have a slight posterior slope, removing a few millimeters of bone from both plateaus. After this, the femoral intramedullary drill was utilized. The femoral canal was entered. The femoral canal was suctioned to discourage embolization. The distal femoral cutting guide was applied on 0 with 6 degrees of valgus and the distal femoral cut was completed and the extension gap was very satisfactory for a 10. The femur was then measured for a size 7 and the anterior, posterior , and chamfering cuts were completed. We finished removal of the posterior horn medial meniscus carefully preserving the MCL, ACL, and PCL once again and the lateral meniscus more peripherally. At this point, we had nice ligamentous balance of 90 degrees of flexion for a 10 mm gap as well. The femur was completed with the intercondylar cutout. The femoral canal was cleaned x6 and suctioned empty and a bone plug was inserted. The tibia was then completed for a size E. The knee was then articulated and extended with an E- tibia 10 articular surface and the size 7 femur with full knee extension, stable ligaments in extension, stable ligaments in 90 degrees of flexion. The osteophytes, we finished removal of those, the patella was cut flat. A 35 was chosen. Three drill holes were made and these were undercut, a lateral release was not necessary. The leg was then exsanguinated, the tourniquet elevated to 275. The final components were checked and opened. The cement was mixed and the components were cemented into position in the patella followed by tibia followed by femur, each was impacted, excess cement was removed, and the knee was articulated and extended during the final hardening. After hardening, we checked posteriorly for retained cement fragments. The tourniquet was deflated. We infiltrated the pericapsular soft tissues with Marcaine 0.5% with epinephrine posteromedially, medially, and laterally. Careful closure was done with irrigation several times. During closure with saline, the drains were brought out. The superolateral suprapatellar pouch, the quad mechanism closed with interrupted #1 zbzyqh-qc-ufvao Vicryl down to the distal end of the medial retinaculum and then 0 Vicryl after that. Deep fascia and deep subcu closed with 0 Vicryl. The superficial subcu closed with 3 -0 Vicryl and the skin was then closed with cipriano. The knee was washed and dried. Everything was dressed with Betadine soaked release and sterile Webril, cryotherapy cuff, ABD pads, and then an Michele bandage loosely applied. The patient 's dorsalis pedis pulse was 2+ at the end of the case. The patient has a callus on her right great toe plantar medial to the IP joint. This had a punctate opening in it and I explored this with a small hemostat and it was completely dry. This area was dressed with Betadine soaked release as well and Yolanda. The patient was returned to the recovery room in stable and satisfactory condition having tolerated the procedure very well. Also, the knee was put through range of movement several times during the closure, flexing well past 125 degrees during those flexions and showing full extension. [id number]/[facility] #: [id number] [facility]
[2018-03-28] MEDS: Hydrochlorothiazide TAB* 25 MG PO SCH (21:33)
[2018-03-29] MEDS: oxyCODONE/Acetamin 5/325 MG* TAB PO PRN ×3 (01:39→10:23)
[2018-03-29 06:49] LABS: Hematocrit 34 % (35-47); Hemoglobin 11.5 g/dl (12.0-16.0); Mean Platelet Volume 7.2 fL (7.4-10.4); Platelet Count 153 10^3/ul (150-450)
[2018-03-29 07:06] LABS: EGFR Non-African American 41.1 (>60)
[2018-03-29 07:48] VITALS: BP 126/54
[2018-03-29] MEDS: Potassium EFFERVESCENT TAB* 25 MEQ TAB.EFF PO SCH (08:31)
[2018-03-29] MEDS: Sulfamethox/Trimethoprim SS 400/80* TAB PO SCH (08:32)
[2018-03-29] MEDS: Cyanocobalamin TAB* 500 MCG PO SCH (08:32)
[2018-03-29] MEDS: Multivitamins/Minerals TAB PO SCH (08:32)
[2018-03-29] MEDS: Aspirin TAB* 325 MG PO SCH (08:32)
[2018-03-29] MEDS: Allopurinol TAB* 300 MG PO SCH (08:32)
--- NOTE | 2018-03-29 08:40 | PN ---
Progress Note - Progress Note Date of Service: 03/29/18 Note: POD #2 98.5 F. VSStable, awake, alert, cooperative and breathing easily. Ambulated in the vivar very well. Dressing changed, knee washed soap and water. All redressed telfa, betadine solution. Able to Straight leg lift and N/V right foot is intact. Hct is 34%. Imp: Stable, acute blood loss anemia. Plans: Probably home later today.
[2018-03-29] MEDS ORDERED: Magnesium Hydroxide LIQ* 30 ML UDC PO SCH (21:00)
--- NOTE | 2018-03-29 23:55 | DS ---
DISCHARGE SUMMARY: DATE OF ADMISSION: 03/27/18 DATE OF DISCHARGE: 03/29/18 DATE OF OPERATION: 03/27/18 SURGEON: Juno Beck MD.* (DICTATED BY MELISSA DIGGS) CREATIVE RESOURCE MANAGER: MELISSA Diggs PRE-OP DIAGNOSIS: Right knee severe arthritis, patellar and lateral. OPERATIVE PROCEDURE: Right total knee arthroplasty. HISTORY: Ms. Fuchs is a 67-year-old female with years of increasingly severe right knee pain. She elected to undergo right total knee arthroplasty. HOSPITAL COURSE: The patient was admitted to [facility] on . She underwent a right total knee arthroplasty without complication. On postop day 1, she is well appearing, in no acute distress. Two drains were removed from her knee. The dressing was dry. She is able to lift the right leg and move ankle up and down. DP pulses 2+ on the right. On postop day 2, she was again well appearing, in no acute distress. Dressing was changed. Able to straight leg raise. Neurovascularly, intact distally. Hematocrit was 34%. Vital signs include temperature 98.3, pulse rate 61, respiratory rate 12, oxygen saturation 99%, blood pressure 126/54. DISCHARGE MEDICATIONS: 1. Allopurinol 300 mg p.o. q.a.m. 2. Vitamin B12 1000 mcg sublingual daily. 3. Potassium bicarbonate 25 mEq p.o. b.i.d. 4. Hydrochlorothiazide 25 mg p.o. at bedtime. 5. Vitamin D3 1000 units p.o. q.a.m. 6. [place] vitamins chewable 1 tab q.a.m. 7. Meclizine 12.5 mg p.o. once p.r.n. 8. Butalbital, acetaminophen, caffeine 50/300/40 one cap p.o. once p.r.n. 9. Bactrim resume home dose until prescription finished. 10. Zofran 4 mg p.o. q.6 p.r.n. 11. Acetaminophen 975 mg p.o. q.8 hours p.r.n. 12. Aspirin 325 mg daily for 30 days for DVT prophylaxis. 13. Docusate 100 mg p.o. b.i.d. p.r.n. 14. Percocet 5/325 one to two tabs every 4 to 6 hours as needed for pain, max daily dose of 8. DISCHARGE INSTRUCTIONS: Weightbearing as tolerated and continue physical therapy and occupational therapy. Aspirin 325 mg daily for 30 days to prevent blood clots. Pain control, Percocet 5/325 one to two tabs every 4 to 6 hours as needed for pain, max dose 8 tabs per day. Follow up with Dr. Beck in 4 to 6 weeks. She is discharged to home. MELISSA DIGGS [id number]/[facility] #: [id number] [facility]
[2018-03-30] MEDS ORDERED: Scopolamine PATCH Remove* 1 NOTE MISC PATCH OFF SCH (11:00)
== END 2018-03-29 11:05 | disposition home or self-care (01) | DRG 470 ==
LOC: AA 05:27 → SSU 12:44
PROVIDERS: ADMIT Orthopaedic Surgery; ATTEND Orthopaedic Surgery
PROC: 0SRC0J9 Replacement of Right Knee Joint with Synthetic Substitute, Cemented, Open Approach (ICD-10-PCS; principal; 2018-03-27 07:30)
DX: M17.11 Unilateral primary osteoarthritis, right knee (principal); D62 Acute posthemorrhagic anemia; E21.3 Hyperparathyroidism, unspecified; M21.061 Valgus deformity, not elsewhere classified, right knee; I10 Essential (primary) hypertension; E78.5 Hyperlipidemia, unspecified; G43.109 Migraine with aura, not intractable, without status migrainosus; M25.761 Osteophyte, right knee; G60.8 Other hereditary and idiopathic neuropathies; G47.33 Obstructive sleep apnea (adult) (pediatric); Z85.820 Personal history of malignant melanoma of skin; Z87.442 Personal history of urinary calculi; Z72.89 Other problems related to lifestyle; Z87.01 Personal history of pneumonia (recurrent); Z87.440 Personal history of urinary (tract) infections; Z86.010 Personal history of colon polyps; N28.9 Disorder of kidney and ureter, unspecified
CPT/HCPCS: 36415; 80048; 85014; 85018; 85049; 88305; 88311; A9270-GY; G8978-GP-CL; G8979-GP-CI; G8987-GO-CJ; G8988-GO-CI; G8988-GO-CJ; G8989-GO-CJ; J0690; J2250; J2704; J3010; J8540

== ENCOUNTER 2018-06-26 16:05 | Observation (INO) | payer OTHER ==
--- OUTSIDE RECORDS SUMMARY | 2018-06-26 16:34 | XMS REPORT | Continuity of Care Document ---
:1950 External Reference #:[id number] Author Name Jossie Lozano Care Team Providers Name Role Phone Santiago Layton MD Primary Care Physician Unavailable Payers Date Identification Numbers Payment Provider Subscriber Policy Number: [id number] [employer] Montse Barrow Group Number: [id number] [id number] PayID: [id number] [place] [address] Advance Directives Description No Information Available Problems Date Description Provider Status Onset: 06/30/2016 Idiopathic progressive polyneuropathy Brian Conti M.D. Active Onset: 04/05/2018 Arthroplasty of knee Yordan Anderson MD Active Onset: 03/30/2018 Localized, primary osteoarthritis Vanessa Clark M.D. 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 ETOH Use Denies alcohol use Tobacco Use Start: Unknown Patient has never smoked Smoking Status Reviewed: 05/30/18 Patient has never smoked Exercise Type/Frequency Does not exercise Allergies, Adverse Reactions, Alerts Description No Known Drug Allergies Medications Medication Date Status Form Strength Qnty SIG Indications Ordering Provider Allopurinol 00 Active Tablets 300mg 90tab 1 by mouth Unknown /0000 s every day Potassium Citrate 0000 Active Tablets 10Meq 90tab take one Unknown ER /0000 ER (1080 mg) s tablet twice daily Multivitamins 00 Active Capsules 30cap 1 by mouth Unknown /0000 s every day Vitamin B-12 Active Tablets 1000mcg 90tab po once a Unknown /0000 s day Vitamin D Active Tablets 25mcg 30tab by mouth Unknown /0000 s everyday Hydrochlorothiazid Active Tablets 25mg 1 by mouth Unknown e / every day Aleve Active Tablets 220mg 1 [...] tab by Unknown /0000 mouth once daily Tylenol 8 Hour Active Tablets 650mg 1 tab every Unknown /0000 ER 6 hours as needed for pain Keflex 04/09 Hx Capsules 500mg 28cap 1 by mouth Z96.651 s 4 times a Eduardo, - day for 7 M.D. Percocet 04/05 Hx Tablets 5-325mg 42tab 1-2 tabs by Z96.651 Dir s mouth every Ebony, - 6 hours as M.D. 05/30 needed pain Keflex 03/30 Hx Capsules 500mg 30cap by mouth M17.11 s every 8 Eduardo, - hours x 10 M.D. continue from prior prescriptio n Magnesium-Oxide 08/25 Hx Tablets 400(241.3 90tab 1 every day G43.109 Brian S. mg) mg s Gallito, - M.D. 03/20 Percocet 10/11 Hx Tablets 5-325mg 14tab 1/2 or 1 by M17.11 s mouth every Ebony, - 8 hours as M.D. 06/30 needed pain Fioricet 11/19 Hx Capsules 50-300-40 24cap 1 by mouth Brian S. mg s twice a day Gallito, - as needed M.D. 03/12 headache max 2 days/wk Magnesium Oxide 11/19 Hx Tablets 400(241.3 90tab 1 every day Mg) mg s Nishi Conti M.D. 08/24 Riboflavin 11/19 Hx Tablets 400mg 100ta 1 po qd bs Nishi Conti M.D. 08/24 Advil Hx Capsules 200mg 200ca 4 caps po Unknown /0000 ps prn - 06/30 Lumigan Hx Unknown /0000 - 08/24 Lumigan Hx Solution 0.01% one drop at Unknown /0000 the base of - three 03/20 fingernails /2017 qd Azithromycin Hx Tablets 250mg take 2 Unknown /0000 tablets by - mouth on 03/20 day 1 take 1 tablet on days 2 through Hx TBPK 4mg take as Unknown /0000 directed on - pack 03/20 Proair HFA Hx Aerosol 108(90Bas inhale 2 Unknown /0000 [...] Available Vital Signs Date Vital Result Comment 05/30/2018 3:06pm Height 66 inches 5'6" Weight 203.00 lb BP Systolic 140 mmHg BP Diastolic 86 mmHg Body Temperature 98.3 F Pain Level 4 Weight Bearing BMI (Body Mass Index) 32.8 kg/m2 04/25/2018 10:24am Height 66 inches 5'6" Weight 203.00 lb BP Systolic 124 mmHg BP Diastolic 70 mmHg Respiratory Rate 20 /min Body Temperature 97.8 F Pain Level 2 BMI (Body Mass Index) 32.8 kg/m2 04/16/2018 9:53am Height 66 inches 5'6" Weight 203.00 lb BP Systolic 122 mmHg BP Diastolic 68 mmHg Respiratory Rate 20 /min Body Temperature 97.9 F Pain Level 0 BMI (Body Mass Index) 32.8 kg/m2 04/09/2018 9:35am Height 66 inches 5'6" Weight 203.00 lb BP Systolic 117 mmHg BP Diastolic 67 mmHg Respiratory Rate 16 /min Body Temperature 98.0 F Pain Level 4 BMI (Body Mass Index) 32.8 kg/m2 04/05/2018 10:33am Height 66 inches 5'6" Weight 203.00 lb BP Systolic 110 mmHg BP Diastolic 60 mmHg Respiratory Rate 18 /min Body Temperature 98.1 F Pain Level 3 BMI (Body Mass Index) 32.8 kg/m2 04/02/2018 11:27am Height 66 inches 5'6" Weight 203.00 lb Body Temperature 97.6 F Pain Level 9 BMI (Body Mass Index) 32.8 kg/m2 03/30/2018 2:40pm Height 66 inches 5'6" Heart Rate 78 /min BP Systolic 118 mmHg BP Diastolic 78 mmHg Respiratory Rate 18 /min Body Temperature 99.8 F Pain Level 3 03/21/2018 9:09am Height 66 inches 5'6" Weight [...] H/L Range Note Urine Culture And 03/19/2018 [facility] Urine Culture SEE RESULT [address] [place] [address] [phone] CBC Auto Diff 03/13/2018 [facility] White Blood 6.6 10^3/uL N 3.5-10.[address] [place] [address] [phone] Red Blood Count 4.57 10^6/uL N 4.00-5.40 [...] Red Blood Cells % 0.1 Inr/Protime 03/13/2018 [facility] Inr 0.86 N 0.77-1.[address] [place] [address] [phone] Laboratory test 03/13/2018 [facility] Partial 33.1 seconds N 26.0-36.[address] [place] [address] PTT [phone] Type & Screen 03/13/2018 [facility] Patient O [place] [address] [phone] Antibody Screen NEGATIVE Comp Metabolic Panel 03/13/2018 [facility] Sodium 140 mmol/L N 135-[address] [place] [address] [phone] Potassium 4.1 mmol/L N 3.5-5.0 Chloride 105 [...] Egfr 33.1 >60 2 Urinalysis Profile 03/13/2018 [facility] Urine Color Yellow [address] [place] [address] [phone] Urine Appearance Cloudy Urine Specific [place] 1.016 N 1.010-1.030 Urine pH 7.0 N [...] Present Abnormal Absent Urine Culture And 03/13/2018 [facility] Urine Culture SEE RESULT [address] [place] [address] [phone] Creatinine 07/01/2016 [facility] Creatinine 1.23 mg/dL High 0.51- [address] 0[address] [place] [address] [phone] Egfr Non- 44.0 N >60 Egfr 56.5 N >60 5 Laboratory test 07/01/2016 [facility] Thyroglobulin AB <1.8 IU/ mL N <4.0 [address] [place] [address] [phone] Miscellaneous Test See Comment N 7 Thyroid Panel 07/01/2016 [facility] Free T4 (Free 0.97 ng/dL N 0.61-1.[address] Thyroxine) [place] [address] [phone] Thyroxine 9.09 ?g/dL N 6.09-12.23 9 TSH (Thyroid Stim Horm) 1.72 mcIU/mL N 0.34-5.60 10 Laboratory test 07/01/2016 [facility] Nuclear AB <1:80 (Negative ) N [address] ([place]) [place] [address] Igg [phone] Anti Ssa/Ro Antibody <0.2 U N 12 SS-B/La Antibody <0.2 U N 13 Neutrophil Cytoplasmic 07/01/2016 [facility] C-Anca Negative N Negative AB [address] [place] [address] [phone] P-Anca Negative N Negative 14 Lipoprotein 07/01/2016 [facility] Lipoprotein <6 mg/dL N <=30 15 Profile/[place] Lp(a) [address] [place] [address] [phone] 1 SEE RESULT BELOW Name: VIVIANAMONTSE THOMAS Ashley : [address]: Micky Berkowitz MD Acct: [id number] Unit: [id number] AGE: 67 Location: LAB Re03/19/18 SEX: F Status: REG REF SPEC: [id number] CHARLY: 03/19/[address] [facility] [address]: Micky Berkowitz MD REQ: [id number] RECD: 03/19/18 STATUS: SERVANDO RIVERA DR: Juno Beck MD _ SOURCE: URINE SPDESC: ORDERED: Urine Culture QUERIES: Urine Source: Clean Catch Procedure Result Reported Site Urine Culture Final 03/20/18811 ML No Growth (<1,000 CFU/mL) * ML - Main Lab . END OF REPORT DEPARTMENT OF PATHOLOGY, [address] [place] [address] Edilberto Jacobson M.D. Director [facility] # [id number] 2 Because ethnic data is not always [...] blood. 4 SEE RESULT BELOW Name: MONTSE BARROW : [address]: Juno Beck MD Acct: [id number] Unit: [id number] AGE: 67 Location: [facility] Re03/13/18 SEX: F Status: REG REF SPEC: [id number] CHARLY: 03/13/[address]: Juno Beck MD REQ: [id number] RECD: 03/13/18 STATUS: COMP _ SOURCE: URINE SPDESC: ORDERED: Urine Culture QUERIES: Urine Source: Clean Catch Procedure Result Reported Site Urine Culture Final 03/14/18- 0848 ML No Growth (<1,000 CFU/mL) * ML - Main Lab . END OF REPORT DEPARTMENT OF PATHOLOGY, [address] [place] [address] Edilberto Jacobson M.D. Director [facility] # [id number] 5 Because ethnic data is not always [...] method is an immunoenzymatic assay manufactured by [employer] and performed on the [employer] DXI 800. Values obtained from different assay methods or kits may be different and cannot be used interchangeably. The results cannot be interpreted as absolute evidence for the presence or absence of malignant disease. Test Performed by: [facility] [employer] [address] [facility] [address] [place] [id number] 7 Test Result Flag Unit RefValue Fatty [...] 110-1130 C16:1w7 Palmitic Acid, C16:0 3517 nmol/mL 7566-2626 g-Linolenic Acid, 79 nmol/mL 16-150 C18:3w6 a-Linolenic Acid, 98 nmol/mL 50-130 C18:3w3 Linoleic Acid, C18:2w6 3058 nmol/mL 8353-1999 Oleic Acid, C18:1w9 3096 nmol/mL 650-3500 Vaccenic Acid, C18:1w7 420 nmol/mL 280-740 Stearic Acid, C18:0 1118 nmol/mL 590-1170 EPA, C20:5w3 74 nmol/mL 14-100 Arachidonic Acid, 733 nmol/mL 520-1490 C20:4w6 Hunt Acid, C20:3w9 27 nmol/mL 7-30 a-a-Gingxropw Acid, 159 nmol/mL 50-250 C20:3w6 Arachidic Acid, [...] developed and its performance characteristics determined by [facility] in a manner consistent with CLIA requirements. This test has not been cleared or approved by the U.S. Food and Drug Administration. Test Performed by: [facility] [place] [address] 8 Copy Result to: SANTIAGO LAYTON ([id number]) 9 Copy Result to: SANTIAGO LAYTON ([id number]) 10 Copy Result to: SANTIAGO LAYTON ([id number]) 11 <1:80 (Negative) REFERENCE VALUE <1:80 (Negative) Test Performed by: [facility] - [address] [address] 12 REFERENCE VALUE <1.0 (Negative) Test Performed by: [place] [address] 13 REFERENCE VALUE <1.0 (Negative) Test Performed by: [place] [address] 14 Negative for cANCA and pANCA patterns by immunofluorescence. ADDITIONAL INFORMATION This test was developed and its performance characteristics determined by [facility] in a manner consistent with CLIA requirements. This test has not been cleared or approved by the U.S. Food and Drug Administration. Test Performed by: [facility] [address] [place] [address] 15 Test Performed by: [facility] [address] [place] [address] Procedures Date Code Description Status 03/27/2018 40171 TKR Total Knee Replacement Completed 03/27/2018 59049 TKR Total Knee Replacement Completed 03/27/2018 39765 TKR Total Knee Replacement Completed 01/01/201847961 Inject/Drain Joint/Bursa Major W/O US Completed 07/05/201749481 Inject/Drain Joint/Bursa Major W/O US Completed 04/03/2017 00460 FX Patella Care Completed 03/13/201799762 Inject/Drain Joint/Bursa Major W/O US Completed 06/14/2016 86192 Holter Monitor Review (24 hr)dr review & interp only Completed 06/13/2016 02402 ECG Monitor/Recording W/Visual Superimposition Scanning Completed 06/10/2016 16596599 Mammogram Completed 10/12/201579104 Inject/Drain Joint/Bursa Major W/O US Completed 08/26/2015 85928 Inject/Drain Joint/Bursa Major W/O US Completed 04/01/201542600 Inject/Drain Joint/Bursa Major W/O US Completed 12/15/201490587 Inject/Drain Joint/Bursa Major W/O US Completed 03/21/2012 02828 EKG, Interpretation Only Completed 11/18/2011 60048 Polysomnography Sleep Staging 4+ Parameters W/Cpap Completed 12/23/2008 44237 ECHO Transthorasic Realtime 2D W Doppler & Color Flow Completed Hosp Encounters Type Date Location Provider Dx Diagnosis Office Visit 01/01/2018 Orthopedic Juno Beck M.D. M17.11 Unilateral primary 8:30a Services Of [facility] osteoarthritis, right knee Office Visit 07/05/2017 Orthopedic Juno Beck M.D. M17.11 Unilateral primary 2:15p Services [...] w/o status migrainosus Office Visit 10/12/2015 Orthopedic Juno Beck, M17.11 Unilateral primary 9:30a Services Of [place] osteoarthritis, right C.M.A. knee Office Visit 04/01/2015 Orthopedic Monalisa M17.11 Unilateral primary 9:00a Services Of [facility] Dillard osteoarthritis, right C.M.A. knee Office Visit 12/15/2014 Orthopedic Juno Beck, 715.96 Osteoarthrosis Unspec 8:30a Services Of [place] Genlztere Or Localized C.M.A. Lower Leg Office Visit 11/19/2013 Alfalfajustine Pichardo 346.00 Migraine Classical 8:30a Neurologic [place] Conti W/O Intractable W/O Services Of [facility] Status Migrainosus 356.4 Polyneuropathy Idiopathic Progress Office Visit 11/25/2011 3:53p Azar Rivera 327.23 Obstructive Sleep Disorder Center [facility] Askew Apnea Adult & Pediatric V67.59 Exam Follow Up Other Office Visit 10/28/2011 11:48a Azar Rivera 786.09 Dyspnea & Disorder [facility] Abnormalities Other 780.1 Hallucinations Office Visit 12/24/2008 12:15a [facility]erg 682.6 Cellulitis & Assoc,pc [place] So Abscess Leg Hospitalists Except Foot Office Visit 12/22/2008 12:45a [facility] Willa Moreno 682.9 Cellulitis & Assoccarmen M.D. Abscess Unspec Hospitalists Site Plan of Treatment 05/30/2018 - Juno Beck M.D.S76.111A Strain of right quadriceps muscle, fascia and tendon, initiaFollow up:Follow up: 2-3 weeks Your knee needs relative rest Use ice 20 minutes at a time up to three times a day OK to use aleve 2 tablets up to twice a day Back off on the physical therapy and be careful on the bus rides
--- OUTSIDE RECORDS SUMMARY | 2018-06-26 16:34 | XMS REPORT | Continuity of Care Document ---
:1950 External Reference #:[id number] Author Name Becka Edge Care Team Providers Name Role Phone Santiago Layton MD Primary Care Physician Unavailable Payers Date Identification Numbers Payment Provider Subscriber Policy Number: [id number] [employer] Montse Barrow Group Number: [id number] [id number] PayID: [id number] [place] [address] Advance Directives Description No Information Available Problems Date Description Provider Status Onset: 06/30/2016 Idiopathic progressive polyneuropathy Brian Conti M.D. Active Onset: 04/05/2018 Arthroplasty of knee Yordan Anderson MD Active Onset: 03/30/2018 Localized, primary osteoarthritis Vanessa Clark M.D. 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 spasms. Allopurinol Active Tablets 300mg 90tab 1 by [...] by mouth Unknown e /0000 every day Butalbital/Acetami Active Capsules 50-300-40 30cap take 1 Brian Marino nophen/Caffeine / mg s capsule by Gallito, mouth at M.D. onset of migraine up to twice a day if need. Max 2 caps/day Meclizine HCL Active Tablets 25mg 1 tablet [...] Hx Tablets 400(241.3 90tab 1 every day M54.2 Brian Pichardo /2017 mg) mg s Gallito, - M.D. 03/20 Percocet 10/11 Hx Tablets 5-325mg 14tab 1/2 or 1 by M17.11 s mouth every Ebony, - 8 hours as M.D. 06/30 needed pain Fioricet 11/19 Hx Capsules 50-300-40 24cap 1 by mouth mg s twice a day Nishi Conti as needed M.DBailey 03/12 max 2 days/wk Magnesium Oxide 11/19 Hx Tablets 400(241.3 90tab 1 every day Mg) mg s Nishi Conti M.DBailey 08/24 Riboflavin 11/19 Hx Tablets 400mg 100ta 1 po qd bs Nishi Conti M.DBailey 08/24 Advil Hx Capsules 200mg 200ca 4 caps po Unknown /0000 ps prn - 06/30 Lumigan Hx Unknown /0000 - 08/24 Lumigan Hx Solution 0.01% one drop at Unknown /0000 the base of - three 03/20 fingernails qd Aleve Hx Tablets 220mg 1 by mouth Unknown /0000 twice a day - 06/14 Azithromycin Hx Tablets 250mg take 2 Unknown [...] Available Vital Signs Date Vital Result Comment 06/15/2018 8:08am Height 66 inches 5'6" Weight 195.00 lb BP Systolic 140 mmHg BP Diastolic 90 mmHg BMI (Body Mass Index) 31.5 kg/m2 05/30/2018 3:06pm Height 66 inches 5'6" Weight [...] H/L Range Note Urine Culture And 03/19/2018 [facility] Urine Culture SEE RESULT [address] [place] [address] [phone] CBC Auto Diff 03/13/2018 [facility] White Blood 6.6 10^3/uL N 3.5-10.[address] [place] [address] [phone] Red Blood Count 4.57 10^6/uL N 4.00-5.40 [...] 0-2 Nucleated Red Blood Cells % 0.1 Urine Culture And 03/13/2018 [facility] Urine Culture SEE RESULT [address] [place] [address] [phone] Urinalysis Profile 03/13/2018 [facility] Urine Color Yellow [address] [place] [address] [phone] Urine Appearance Cloudy Urine Specific [place] 1.016 N 1.010-1.030 Urine pH 7.0 N [...] Urine Squamous Epithelial Cell Present Abnormal Absent Inr/Protime 03/13/2018 [facility] Inr 0.86 N 0.77-1.[address] [place], [place] [address] [phone] Laboratory test 03/13/2018 [facility] Partial 33.1 seconds N 26.0-36.[address] [address] PTT [phone] Type & Screen 03/13/2018 [facility] Patient O Positive [address] [address] [phone] Antibody Screen NEGATIVE Comp Metabolic Panel 03/13/2018 [facility] Sodium 140 mmol/L N 135-[address] [place], [place] [address] [phone] Potassium 4.1 mmol/L N 3.5-5.0 Chloride 105 [...] Egfr Non- 27.4 >60 Egfr 33.1 >60 4 Lipoprotein 07/01/2016 [facility] Lipoprotein <6 mg/dL N <=30 5 Profile/[address] Profile Apo a Lp(a) [place], [place] [address] [phone] Neutrophil 07/01/2016 [facility] C-Anca Negative N Negative Cytoplasmic [place] [address] [phone] P-Anca Negative N Negative 6 Laboratory test 07/01/2016 [facility] Nuclear AB <1:80 (Negative ) N 7 finding ([place]) [place] [address] Igg [phone] Anti Ssa/Ro Antibody <0.2 U N 8 SS-B/La Antibody <0.2 U N 9 Thyroid Panel 07/01/2016 [facility] Free T4 (Free 0.97 ng/dL N 0.61-1.[address] Thyroxine) [place] [address] [phone] Thyroxine 9.09 ?g/dL N 6.09-12.23 11 TSH (Thyroid Stim Horm) 1.72 mcIU/mL N 0.34-5.60 12 Laboratory test 07/01/2016 [facility] Thyroglobulin AB <1.8 IU/ mL N <4.0 [address] [place] [address] [phone] Miscellaneous Test See Comment N 14 Creatinine 07/01/2016 [facility] Creatinine 1.23 mg/dL High 0.51-0.95 [place] [address] [phone] Egfr Non- 44.0 N >60 Egfr 56.5 N >60 15 1 SEE RESULT BELOW Name: MONTSE BARROW : [address]: Micky Berkowitz MD Acct: [id number] Unit: [id number] AGE: 67 Location: LAB Re03/19/18 SEX: F Status: REG REF SPEC: [id number] CHARLY: 03/19/18 [facility] DR: Micky Berkowitz MD REQ: [id number] RECD: 03/19/18 STATUS: SERVANDO RIVERA DR: Juno Beck MD _ SOURCE: URINE SPDESC: ORDERED: Urine Culture QUERIES: Urine Source: Clean Catch Procedure Result Reported Site Urine Culture Final 03/20/18- 811 ML No Growth (<1,000 CFU/mL) * ML - Main Lab . END OF REPORT DEPARTMENT OF PATHOLOGY, [address] [place] [address] Edilberto Jacobson M.D. Director BRY # [id number] 2 SEE RESULT BELOW Name: MONTSE BARROW : [address]: Juno Beck MD Acct: [id number] Unit: [id number] AGE: 67 Location: [facility] Re03/13/18 SEX: F Status: REG REF SPEC: [id number] CHARLY: 03/13/18 [facility] DR: Juno Beck MD REQ: [id number] RECD: 03/13/18 STATUS: COMP _ SOURCE: URINE SPDESC: ORDERED: Urine Culture QUERIES: Urine Source: Clean Catch Procedure Result Reported Site Urine Culture Final 03/14/18- 0848 ML No Growth (<1,000 CFU/mL) * ML - Main Lab . END OF REPORT DEPARTMENT OF PATHOLOGY, [address] [place] [address] Edilberto Jacobson M.D. Director [facility] # [id number] 3 *Ascorbic acid is present which may interfere with detection of blood. 4 Because ethnic data is not always readily [...] 15-29 5 Kidney failure <15 (or dialysis) 5 Test Performed by: [address] [address] 6 Negative for cANCA and pANCA patterns by immunofluorescence. ADDITIONAL INFORMATION This test was developed and its performance characteristics determined by [facility] in a manner consistent with CLIA requirements. This test has not been cleared or approved by the U.S. Food and Drug Administration. Test Performed by: [place] [id number] 7 <1:80 (Negative) REFERENCE VALUE <1:80 (Negative) Test Performed by: [facility] [place] [address] 8 REFERENCE VALUE <1.0 (Negative) Test Performed by: [place] [id number] REFERENCE VALUE <1.0 (Negative) Test Performed by: [place] [address] 10 Copy Result to: SANTIAGO LAYTON ([id number]) 11 Copy Result to: SANTIAGO LAYTON ([id number]) 12 Copy Result to: SANTIAGO LAYTON ([id number]) 13 ADDITIONAL INFORMATION The thyroglobulin antibody testing method is an immunoenzymatic assay manufactured by [employer] and performed on the [employer] DXI 800. Values obtained from different assay methods or kits may be different and cannot be used interchangeably. The results cannot be interpreted as absolute evidence for the presence or absence of malignant disease. Test Performed by: [place] [address] 14 Test Result Flag Unit RefValue Fatty Acid [...] 110-1130 C16:1w7 Palmitic Acid, C16:0 3517 nmol/mL 3622-1331 g-Linolenic Acid, 79 nmol/mL 16-150 C18:3w6 a-Linolenic Acid, 98 nmol/mL 50-130 C18:3w3 Linoleic Acid, C18:2w6 3058 nmol/mL 1109-9919 Oleic Acid, C18:1w9 3096 nmol/mL 650-3500 Vaccenic Acid, C18:1w7 420 nmol/mL 280-740 Stearic Acid, C18:0 1118 nmol/mL 590-1170 EPA, C20:5w3 74 nmol/mL 14-100 Arachidonic Acid, 733 nmol/mL 520-1490 C20:4w6 Ovett Acid, C20:3w9 27 nmol/mL 7-30 j-r-Jiwdvkhpn Acid, 159 nmol/mL 50-250 C20:3w6 Arachidic Acid, [...] developed and its performance characteristics determined by [facility] in a manner consistent with CLIA requirements. This test has not been cleared or approved by the U.S. Food and Drug Administration. Test Performed by: [address] [address] 15 Because ethnic data is not always readily [...] 15-29 5 Kidney failure <15 (or dialysis) Procedures Date Code Description Status 03/27/2018 78542 TKR Total Knee Replacement Completed 03/27/2018 34730 TKR Total Knee Replacement Completed 03/27/2018 40938 TKR Total Knee Replacement Completed 01/01/201804323 Inject/Drain Joint/Bursa Major W/O US Completed 07/05/201790778 Inject/Drain Joint/Bursa Major W/O US Completed 04/03/2017 50074 FX Patella Care Completed 03/13/201730914 Inject/Drain Joint/Bursa Major W/O US Completed 06/14/2016 62612 Holter Monitor Review (24 hr)dr franco & tristian only Completed 06/13/2016 16440 ECG Monitor/Recording W/Visual Superimposition Scanning Completed 06/10/2016 19243714 Mammogram Completed 10/12/2015 Inject/Drain Joint/Bursa Major W/O US Completed 08/26/201554063 Inject/Drain Joint/Bursa Major W/O US Completed 04/01/201583275 Inject/Drain Joint/Bursa Major W/O US Completed 12/15/2014 Inject/Drain Joint/Bursa Major W/O US Completed 03/21/2012 24566 EKG, Interpretation Only Completed 11/18/2011 86601 Polysomnography Sleep Staging 4+ Parameters W/Cpap Completed 12/23/2008 58319 ECHO Transthorasic Realtime 2D W Doppler & Color Flow Completed Hosp Encounters Type Date Location Provider Dx Diagnosis Office Visit 01/01/2018 Orthopedic Juno Beck M.D. M17.11 Unilateral primary 8:30a [facility] osteoarthritis, right knee Office Visit 07/05/2017 Orthopedic [...] Brian Pichardo G60.3 Idiopathic 11:00a Clinic [facility] Cnoti progressive neuropathy R42 Dizziness and giddiness H90.3 Sensorineural hearing loss, bilateral G43.109 Migraine with aura, not intractable, w/o status migrainosus Office Visit 10/12/2015 Orthopedic Juno Beck M17.11 Unilateral primary 9:30a Services [facility] osteoarthritis, right [facility] knee Office Visit 04/01/2015 Orthopedic Monalisa M17.11 Unilateral primary 9:00a Services [facility] NATO Dillard osteoarthritis, right [facility]. knee Office Visit 12/15/2014 Orthopedic Juno Beck, 715.96 Osteoarthrosis Unspec 8:30a Services [facility] Sequeira Or Localized [facility] Lower Leg Office Visit 11/19/2013 Joe Pichardo 346.00 Migraine Classical 8:30a Neurologic [facility] Conti W/O Intractable W/O Services Of Can Reconditioner Status Migrainosus 356.4 Polyneuropathy Idiopathic Progress Office Visit 11/25/2011 3:53p Azar Rivera 327.23 Obstruct[facility] Askew [facility] Pediatric V67.59 Exam Follow Up Other Office Visit 10/28/2011 11:48a Azar Rivera 786.09 Dyspnea & Disorder [facility] Abnormalities Other 780.1 Hallucinations Office Visit 12/24/2008 12:15a [place] Keith Ulrich 682.6 [facility],carmen So M.D. Abscess Leg Hospitalists Except Foot Office Visit 12/22/2008 12:45a [facility] Willa Moreno, 682.9 Cellulitis & Asscarmen jean M.D. Abscess Unspec Hospitalists Site Plan of Treatment Future Appointment(s):07/03/2018 9:00 am - Arnav Santana NP at [facility]06/15/2018 - Arnav Satnana NPM54.2 CervicalgiaNew Medication: Cyclobenzaprine HCL 5 mg - Take 1 tab q hs,for muscle spasms.New Therapy: Physical IumtdseJ99 HeadacheFollow up:2-4 WEEKS
--- NOTE | 2018-06-26 16:44 | ED ---
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 The patient reports that she had an MRI done the morning of 06/26/18 and after the results Dr. Conti recommended that she come to the ED for further testing. At triage the patient rated her pain as a 3/ 10 in severity. She claims that her neck pain has worsened in the past two months on her left side, and there has been a new onset daily migraine for the past two weeks. She reports that turning her head would aggravate her pain. She also reports that she often has left kidney infections and is unsure if she has a kidney infection currently. She reports taking Tylenol since she aggravated her knee post knee replacement surgery, but it has not alleviated her pain. Vital signs while in room HR: 79 bpm, O2 Sat: 100, BP: 179/98. - History of Current Complaint Chief Complaint: EDNeckComplaint Stated Complaint: HAD MRI, DR LOCKWOOD, COME TO ER, INFECTION PER PT Time Seen by Provider: 06/26/18 16:30 Hx Obtained From: Patient Onset/Duration Of Injury/Symptoms: Months Mechanism Of Injury: No Known Trauma Timing: Constant, Lasting Weeks Onset/Duration: Gradual Onset, Started weeks ago, Still Present Severity Initially: Mild Severity Currently: Moderate Pain Intensity: 3 Pain Scale Used: 0-10 Numeric Location: Diffuse - left neck Character: Other: - worsening neck pain with daily migraines Aggravating Factors: Nothing Alleviating Factors: Nothing Associated Signs & Symptoms: Negative: Fever - Allergies/Home Medications Allergies/Adverse Reactions: Allergies Allergy/AdvReac Type Severity Reaction Status Date / Time No Known Allergies Allergy Unverified 06/26/18 16:06 Home Medications: Home Medications Ped Multivit 43/Iron Fumarate [Flintstones Complete Chew Tab] 36 mg PO QAM 06/26 [History Confirmed 06/26/18] PMH/Surg Hx/FS Hx/Imm Hx Previously Healthy: No Endocrine/Hematology History: Reports: Hx Thyroid Disease - hyperparathyroid gland - PARATHYROIDECTOMY 1998, Other Endocrine/Hematological Disorders - hyperparathyroidism Denies: Hx Diabetes Cardiovascular History: Reports: Hx Hypercholesterolemia Denies: Hx Hypertension, Hx Pacemaker/ICD Respiratory History: Reports: Hx Sleep Apnea GI History: Reports: Hx Gall Bladder Disease History: Reports: Hx Kidney Infection - 10 12, Hx Kidney Stones Denies: Hx Renal Disease Musculoskeletal History: Reports: Hx Arthritis Sensory History: Reports: Hx Cataracts - STARTING PER PATIENT, Hx Hearing Aid Denies: Hx Contacts or Glasses Opthamlomology History: Reports: Hx Cataracts - STARTING PER PATIENT Denies: Hx Contacts or Glasses Neurological History: Reports: Hx Migraine, Hx Nerve Disease, Other Neuro Impairments/Disorders - neuropathy Psychiatric History: Reports: Hx Depression - 2008, OK NOW Denies: Hx Panic Disorder - Cancer History Cancer Type, Location and Year: MELANOMA. BASAL. MOHOS - UPPER LIP Hx Chemotherapy: No Hx Radiation Therapy: No - Surgical History Surgery Procedure, Year, and Place: parathyroidectomy 1998 in [place]; excision of malignant melanoma 2000; left kidney stone removal; open cholecystectomy 1994 in. [place]; repair of right knee after trauma, Rt KNEE REPLACEMENT - 08/09. Right Breast Stereo 06/18/12-Benign. GASTRIC BYPASS- [facility] 2011 Hx Anesthesia Reactions: Yes - NAUSEA AND FLU LIKE SYMPTOMS Infectious Disease History: No Infectious Disease History: Denies: Hx Clostridium Difficile, Hx Hepatitis, Hx Human Immunodeficiency Virus (HIV), Hx Shingles, Hx Tuberculosis, Traveled Outside the in Last 30 Days - Family History Known Family History: Positive: Hypertension - Social History Alcohol Use: None Substance Use Type: Reports: None Smoking Status (MU): Never Smoked Tobacco Review of Systems Negative: Fever Positive: Other - Positive: neck pain Positive: Myalgia - neck pain Neurological: Other - positive: daily migraines All Other Systems Reviewed And Are Negative: Yes Physical Exam - Summary Physical Exam Summary: Appearance: The patient is well-nourished in no acute distress and in no acute pain. Skin: The skin is warm and dry and skin color reflects adequate perfusion. HEENT: The head is normocephalic and atraumatic. The pupils are equal and reactive. The conjunctivae are clear and without drainage. Nares are patent and without drainage. Mouth reveals moist mucous membranes and the throat is without erythema and exudate. The external ears are intact. The ear canals are patent and without drainage. The tympanic membranes are intact. Neck: The neck is supple with full range of motion and non-tender. There are no carotid bruits. There is no neck vein distension. Respiratory: Chest is non-tender. Lungs are clear to auscultation and breath sounds are symmetrical and equal. Cardiovascular: Heart is regular rate and rhythm. There is no murmur or rub auscultated. There is no peripheral edema and pulses are symmetrical and equal. Abdomen: The abdomen is soft and non-tender. There are normal bowel sounds heard in all four quadrants and there is no organomegaly palpated. Musculoskeletal: There is no back tenderness noted. Extremities are non-tender with full range of motion. There is good capillary refill. There is no peripheral edema or calf tenderness elicited. Neurological: Patient is alert and oriented to person, place and time. The patient has symmetrical motor strength in all four extremities. Cranial nerves are grossly intact. Deep tendon reflexes are symmetrical and equal in all four extremities. Psychiatric: The patient has an appropriate affect and does not exhibit any anxiety or depression. Triage Information Reviewed: Yes Vital Signs On Initial Exam: Initial Vitals Temp Pulse Resp BP Pulse Ox 97.8 F 84 16 163/99 99 06/26/18 16:07 06/26/18 16:07 06/26/18 16:07 06/26/18 16:07 06/26/18 16:07 Vital Signs Reviewed: Yes Diagnostics - Vital Signs Vital Signs Temp Pulse Resp BP Pulse Ox 06/26/18 16:07 97.8 F 84 16 163/99 99 - Laboratory Result Diagrams: 06/26/18 16:45 06/27/18 04:57 Lab Statement: Any lab studies that have been ordered have been reviewed, and results considered in the medical decision making process. Neck Course/Dx - Course Course Of Treatment: Ms. Fuchs was nontoxic in appearance on arrival but clearly in pain. She was given IV pain medications while labs were obtained and noted to be WNL. Dr. Vidal was contacted and requested a CT and CTA which were obtained. He came to the department to evaluate the patient and determine the course. - Diagnoses Provider Diagnoses: Neck pain, Radiculopathy affecting upper extremity - Physician Notifications Discussed Care Of Patient With: Jeanna Stout Time Discussed With Above Provider: 18:00 Instructed by Provider To: Other - Recommended further testing Discharge - Sign-Out/Discharge Documenting (check all that apply): Sign-Out Patient Signing out patient TO: Arti Marshall - Discharge Plan Condition: Stable Disposition: ADMITTED TO [facility] - Billing Disposition and Condition Condition: STABLE Disposition: Admitted to [facility] - Attestation Statements Document Initiated by Scribe: Yes Documenting Scribe: Molina Pena Provider For Whom Emilia is Documenting (Include Credential): Brady Skelton MD Scribe Attestation: Molina Aguilar, scribed for Brady Skelton MD on 06/27/18 at 0929. Scribe Documentation Reviewed: Yes Provider Attestation: The documentation as recorded by the Molina miller accurately reflects the service I personally performed and the decisions made by me, Brady Skelton MD Status of Scribe Document: Viewed
[2018-06-26 17:04] LABS: ABS Basophils 0 10^3/ul (0-0.2); ABS Eosinophils 0.2 10^3/ul (0-0.6); ABS Lymphocytes 2.1 10^3/ul (1.0-4.8); ABS Monocytes 0.5 10^3/ul (0-0.8); ABS Neutrophils 3.5 10^3/ul (1.5-7.7); ABS Nucleated RBC 0 10^3/ul; Eosinophil % 2.5 %; Hematocrit 41 % (35-47); Hemoglobin 13.5 g/dl (12.0-16.0); Lymphocyte % 33.5 %; Mean Corpuscular HGB Conc 33 g/dl (31-36); Mean Corpuscular Hemoglobin 29 pg (27-31); Mean Corpuscular Volume 88 fL (80-97); Mean Platelet Volume 7.2 fL (7.4-10.4); Nucleated Red Blood Cells % 0; Platelet Count 212 10^3/ul (150-450); Red Blood Count 4.59 10^6/ul (4.00-5.40); Red Cell Distribution Width 15 % (10.5-15); White Blood Count 6.2 10^3/ul (3.5-10.8)
[2018-06-26 17:21] LABS: Albumin 4.3 g/dL (3.2-5.2); Albumin/Globulin Ratio 1.7 (1-3); BUN/Creatinine Ratio 23.2 (8-20); C Reactive Protein 2.18 mg/L (<8.01); Calcium 10.3 mg/dL (8.6-10.3); EGFR African American 51.9 (>60); EGFR Non-African American 42.9 (>60); Globulin 2.5 g/dL (2-4); Potassium 2.9 mmol/L (3.5-5.0); Total Bilirubin 0.3 mg/dL (0.2-1.0); Total Protein 6.8 g/dL (6.4-8.9)
[2018-06-26] MEDS ORDERED: Ketorolac INJ* 30 MG/ML 1 ML VIAL IV PUSH ONE (17:31)
[2018-06-26] MEDS ORDERED: Iodixanol* (CONTRAST) 320 MG/ML 100 ML SDV IV ONE (18:30)
[2018-06-26 18:43] LABS: Urine Appearance Cloudy; Urine Bacteria Absent (Absent); Urine Bilirubin Negative (Negative); Urine Blood Negative (Negative); Urine Color Yellow; Urine Glucose 1+(50 mg/dL) (Negative); Urine Ketones Negative (Negative); Urine Nitrite Negative (Negative); Urine Protein 1+(30 mg/dL) (Negative); Urine Red Blood Cell Trace(0-2/hpf) (Absent); Urine Specific Gravity 1.014 (1.010-1.030); Urine Squamous Epithelial Cell Present (Absent); Urine Urobilinogen Negative (Negative); Urine White Blood Cell Trace(0-5/hpf) (Absent)
--- NOTE | 2018-06-26 20:36 | ED ---
Progress - Progress Note Progress Note: Pt is a signout from Dr. Skelton pending CTA Neck. The pt is presently stable. - Results/Orders Results/Orders: Neck CTA 1. Normal neck CTA. 2. Small right thyroid lobe nodule. No followup indicated. ED physician has reviewed this report. Course/Dx - Course Course Of Treatment: The pt is a signout from Dr. Skelton pending CTA neck results. CTA neck shows 1. Normal neck CTA. 2. Small right thyroid lobe nodule. No followup indicated. The pt will be admitted to [facility] under Dr. Betancourt for further workup and evaluation. - Diagnoses Provider Diagnoses: Neck pain - Provider Notifications Time Discussed With Above Provider: 18:00 Instructed by Provider To: Other - Recommended further testing Discharge - Sign-Out/Discharge Documenting (check all that apply): Patient Departure, Receiving Sign-Out Receiving patient FROM: Brady Skelton - Discharge Plan Condition: Stable Disposition: ADMITTED TO [facility] - Attestation Statements Document Initiated by Scribe: Yes Documenting Scribe: Dora Vazquez Provider For Whom Emilia is Documenting (Include Credential): Arti Marshall MD. Scribe Attestation: Dora Aguilar, scribed for Arti Marshall MD. on 06/27/18 at 0157. Status of Scribe Document: Ready
[2018-06-26] MEDS ORDERED: oxyCODONE/Acetamin 5/325 MG* TAB PO PRN (21:44)
[2018-06-26] MEDS ORDERED: Docusate CAP* 100 MG PO PRN (21:44)
[2018-06-26] MEDS ORDERED: Ondansetron INJ* 2 MG/ML VIAL IV PRN (21:44)
[2018-06-26] MEDS ORDERED: Al Hydrox/Mg Hydrox/Simet LIQ* 30 ML UDC PO PRN (21:44)
[2018-06-26] MEDS ORDERED: Acetaminophen TAB* 325 MG PO PRN (21:44)
[2018-06-26] MEDS ORDERED: Senna TAB PO PRN (21:44)
[2018-06-26] MEDS ORDERED: [UNRECOGNIZED DRUG - OTHER] PO PRN (21:47)
[2018-06-26] MEDS ORDERED: Potassium Chlor TAB* 20 MEQ TAB.ER PO ONE (21:47)
[2018-06-26] MEDS ORDERED: BUTALB PO PRN (21:47)
[2018-06-26] MEDS ORDERED: Meclizine TAB* 12.5 MG PO PRN (21:47)
[2018-06-26] MEDS ORDERED: CAFFEINE PO PRN (21:47)
[2018-06-26] MEDS ORDERED: ACETAMINOPHEN PO PRN (21:47)
[2018-06-26] MEDS ORDERED: Cyclobenzaprine TAB* 10 MG PO PRN (21:59)
[2018-06-26] MEDS: Morphine VIAL* 4 MG/ML VIAL (1 ml vial) IV PRN (22:04)
[2018-06-26 22:07] LABS: Magnesium 1.5 mg/dL (1.9-2.7)
[2018-06-26] MEDS ORDERED: Magnesium Sulfate 2 GM IV* 2 GM/50 ML BAG IVPB ONE (22:22)
[2018-06-26] MEDS ORDERED: Butalb/Acetamin/Caff TAB* 1 TAB PO PRN (22:24)
--- NOTE | 2018-06-26 23:47 | HP ---
CC: Quang Layton MD * HISTORY AND PHYSICAL: DATE OF ADMISSION: 06/26/18 TIME OF EVALUATION: 2099 PRIMARY CARE PHYSICIAN: Quang Layton MD. CHIEF COMPLAINT: Neck pain and migraines. HISTORY OF PRESENT ILLNESS: This is a 68-year-old female with past medical history of migraines and arthritis who presented to the emergency room after having an abnormal cervical spine MRI that was done by Dr. Conti. Patient states about a year ago she was developing neck and shoulder pain. She went to see the nurse practitioner, who prescribed her muscle relaxer at that time. Over the past 1-1/2 months, it has gotten progressively worse on the left side of her neck radiating up. She states over the past 2 weeks she has been getting daily migraines, sometimes twice a week. Normally, she gets migraines twice a month with aura. She went to see Dr. Conti last week regarding her migraines and she told him about the pain in her neck, and he had scheduled her to get a brain and cervical spine MRI. Due to the abnormal findings on the cervical spine MRI for concern of septic arthritis in C1-C2, he recommended she go to the emergency room, be evaluated by Dr. Stout from neurosurgery. Patient was seen by Dr. Stout in the emergency room; he recommended a [place] J collar and for a workup for concern for septic arthritis. She denies any fevers. No URI symptoms. No chest pain. No shortness of breath. No chills. No nausea, vomiting, diarrhea. No abdominal pain. She denies any vision changes. No numbness or tingling or any weakness. She denies any medication changes. She denies any injections in her neck. She denies any trauma to her neck or shoulders. Otherwise, review of systems is negative. In the emergency room, patient had labs and imaging. She was given 15 mg of Toradol and referred to the hospitalist service for further evaluation. PAST MEDICAL HISTORY: 1. Arthritis. 2. History of migraines with aura, followed by Dr. Conti. 3. History of right total knee replacement in March 2018. 4. History of hyperparathyroidism, status post surgery in 1998. 5. History of kidney stones. 6. Hypertension. 7. CKD. 8. Gout. MEDICATIONS: Patient states she has been takin. Tylenol as needed. 2. Advil as needed. 3. She states she is also on a muscle relaxer as needed. 4. Vitamin D 1000 units daily in the morning. 5. Butalbital//acetaminophen/caffeine 50/300/40 one cap as needed. 6. Allopurinol 300 mg daily in the morning. 7. Meclizine 12.5 mg daily as needed. 8. Hydrochlorothiazide 25 mg at bedtime. 9. Cyanocobalamin 1000 mcg sublingual daily. 10. Multivitamin daily. 11. Zofran as needed. 12. Potassium bicarbonate/Effer-K 25 mEq p.o. b.i.d. ALLERGIES: No known drug allergies. FAMILY HISTORY: Father at age 81 from pneumonia and complications of DVT. Mother at age 93 from congestive heart failure. SOCIAL HISTORY: Patient lives at home with her , who is her healthcare proxy. She is independent of her ADLs. She works in the [employer] office of [place]. No history of alcohol, smoking, or illicit drug use. CODE STATUS: Full code. REVIEW OF SYSTEMS: A 14-point review of systems as mentioned in the HPI; otherwise, negative. PHYSICAL EXAMINATION GENERAL: No acute distress, resting comfortably. VITALS: Temp 97.8, pulse rate 73, respiratory rate 17, oxygen saturation 95% on room air, blood pressure 151/85. HEENT: Head normocephalic. Pupils equal and reactive, anicteric. Oropharynx: Mucous membranes moist. No erythema or exudate. NECK: Supple. She does have fullness in the left paraspinal region in the cervical spine and tenderness in the paraspinal region all the way up just inferior to the mastoid process. Limited range of motion due to pain. RESPIRATORY: Clear to auscultation. No wheezes, rhonchi, or rales. CARDIAC: Regular rate and rhythm, soft systolic murmur heard throughout. ABDOMEN: Soft, nontender, nondistended. EXTREMITIES: No clubbing, cyanosis, or edema. NEUROLOGIC: Alert and oriented x3. No gross focal neurologic deficits. Negative pronator drift. DIAGNOSTIC STUDIES/LAB DATA: Laboratory Data: White count 6.2, hemoglobin 13.5, hematocrit 41, platelets 212. Sodium 137, potassium 2.9, chloride 102, bicarb 26, BUN 29, creatinine 1.25, glucose 154, CRP is 2.18. UA shows +1 protein, squamous cells present. Cervical spine MRI done from 06/26/18, erosive change and flanking bone marrow edema at the articulation between the left lateral mass of C1 and the body of C2 may represent sterile mild inflammatory arthropathy superimposed on preexisting degenerative arthropathy or septic arthritis in the correct clinical setting. Multilevel degenerative spondyloses and posterior element osteoarthritis resulting in foraminal greater than central canal acquired spinal stenosis as described. CTA shows normal neck CTA. Small right thyroid nodule. ASSESSMENT: This is a 68-year-old female with past medical history of migraines and arthritis who presents to the emergency room with worsening neck and shoulder pain and migraines, found to have abnormalities on C1-C2 on cervical spine MRI. 1. Neck pain. Assessment: The concern is based on her MRI that she may have septic arthritis on her C1-C2, which is rare, but not impossible. She does not have any other findings of infection. No fevers. No elevated white count. Normal CRP. I am waiting for her sed rate results. Plan: She had blood cultures obtained in the emergency room. We will hold off on starting her on empiric antibiotics. We will continue with the [place] J collar per neurosurgery. We will place an infectious disease consult and follow up with Neurosurgery. Continue with pain control, bowel regimen, and consider neurology evaluation if she continues to have migraines while she is an inpatient. There was discussion per Dr. Stout of possibly interventional radiology guided biopsy of her C1-C2 region. Recommend followup with the daytime team. 2. Chronic medical problems. We will resume her home medications as prescribed. 3. FEN. Continue on a regular diet. 4. Code status: Full code. 5. DVT prophylaxis. Patient scores moderate risk. Place her on heparin subcu t.i.d. PATIENT TIME: Greater than 45 minutes spent doing this history and physical, more than half the time spent in direct patient contact. [id number]/[facility] #: [id number] JOSI
[2018-06-27] MEDS: Heparin VIAL(*) 5000 UNITS/ML VIAL (FIVE THOUSAND) SUBCUT SCH ×4 (00:21→21:51)
--- NOTE | 2018-06-27 00:41 | CONS ---
CONSULTATION REPORT: DATE OF CONSULT: 06/26/18 HISTORY OF PRESENT ILLNESS: The patient is a very pleasant 68-year-old right- handed female with history of hyperparathyroidism, status post parathyroidectomy in 1998, kidney stone disease, who was followed by Dr. Conti with history of migraine headaches. The patient reported that last year started experiencing increased neck pain, which she initially thought was related to arthritis. The pain got more intense over the last few months and gradually worsened over the last few weeks, with the patient having increased pain when just trying to turn her head from side to side. The patient had increased frequency of migraine headaches and Dr. Conti kindly ordered an MRI of the brain and MRI of the cervical spine. MRI of the brain was unremarkable, but the MRI of the cervical spine revealed left C1-C2 facet arthritis with increased STIR signal changes. Because of these findings, the patient was asked to come to the emergency room for further evaluation and requested to see the patient by the emergency room physician regarding the above findings on the MRI. The patient reports that she had no recent infection, although she had some episodes of superficial wound infection when she had the right knee replacement. The patient reports that she has had no fevers, no sore throat, no difficulty swallowing. She has been having some mild occipital neuralgia on the left, but that is intermittent. She denies any weakness, numbness or tingling of her extremities. She ambulates without difficulty. She denies any difficulty with upper extremities. She denies any problems with her balance. She denies any urinary or GI incontinence. The patient is . She is accompanied here by her . 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 PAST MEDICAL HISTORY: Hyperparathyroidism, hypercholesterolemia, sleep apnea, kidney infections, kidney stones, cataract, hearing loss, depression, melanoma. PAST SURGICAL HISTORY: The patient had melanoma resection, had parathyroidectomy in 1998 in [place], excision of melanoma in 2000, left kidney stone removal, open cholecystectomy in 1994, right knee replacement, breast biopsy, gastric bypass, Liz-en-Y. MEDICATIONS: The patient is taking multivitamins and iron supplements. ALLERGIES: No known drug allergies. FAMILY HISTORY: Hypertension. SOCIAL HISTORY: Tobacco negative. Alcohol negative. Recreational use negative. PHYSICAL EXAM: The patient is not in acute distress. She is awake, alert, and oriented x3. Her pupils are equal and reactive. Cranial nerves II through XII are grossly intact. Motor 5/5 in all extremities. No pronator drift. Sensory : Grossly intact to light touch. Deep tendon reflexes +1 bilaterally. No clonus. No Babinski. Kinga's negative. Straight leg test negative in the sitting position. The patient has no pain to palpation of the thoracic or lumbar spine. She has free range of motion in the cervical spine with flexion and extension, but some limitation on the lateral rotation towards the left side. DIAGNOSTIC STUDIES/LAB DATA: The patient had an MRI of brain shows that the patient has a mild chronic microvascular disease, unchanged since the previous MRI from 2017. The patient had an MRI of the cervical spine that revealed a left C1-C2 joint increased signal with possible bone marrow edema. The patient also has evidence of osteoarthritis. The patient had the CTA of her neck that revealed normal findings for her cervical vasculature. The patient does have some possible erosion on the left side of C2 vertebral body, most significant evidence of subluxation. There are some arthritic changes in the left C1-C2 joint with some mild erosion of the endplate. ASSESSMENT: The patient is a very pleasant 68-year-old right-handed female with complaints of neck pain with MRI findings consistent with left C1-C2 possible arthritis. PLAN: The patient at this point is doing quite well. We discussed in extent with the patient and her as well as the patient's brother over the phone who is a radiation oncologist in [place] regarding the patient's imaging findings. Although crystal-induced arthritis might be the most common etiology, septic arthritis may be also included in the differential diagnosis. Her WBC count was 6.2 with C-reactive protein of 2.1, while the ESR is pending. Based on the lack of fever, signs of systemic infection or increased inflammatory sesay, the possibility of septic arthritis is very small. Indeed, there are only few case reports in the literature of septic arthritis on that joint. Nevertheless, the possibility of biopsy in order to exclude the infectious etiology or crystal-induced arthritis was discussed with the patient. The patient's father has history of gout. We will be happy to obtain flexion-extension x-rays of her cervical spine to exclude the possibility of overt instability and we will observe the patient overnight. We will obtain [place] J collar and tomorrow consideration for further investigation with possible biopsy will be considered. Thank you for allowing us to participate in the care of this patient. Please do not hesitate to contact our office in case you have any further questions or concerns regarding the care of this patient. [id number]/[facility] #: [id number] JOSI
[2018-06-27 05:26] LABS: Calcium 10.1 mg/dL (8.6-10.3); EGFR African American 58.9 (>60); EGFR Non-African American 48.7 (>60); Potassium 3.3 mmol/L (3.5-5.0)
[2018-06-27] MEDS: Hydrochlorothiazide TAB* 25 MG PO SCH (07:53)
[2018-06-27] MEDS: Allopurinol TAB* 300 MG PO SCH (07:53)
[2018-06-27] MEDS: Morphine VIAL* 4 MG/ML VIAL (1 ml vial) IV PRN (07:53)
[2018-06-27] MEDS: Potassium EFFERVESCENT TAB* 25 MEQ TAB.EFF PO SCH ×2 (07:54→21:51)
[2018-06-27] MEDS: Cholecalciferol TAB* 1000 UNITS PO SCH (07:54)
[2018-06-27] MEDS ORDERED: Potassium Chlor TAB* 20 MEQ TAB.ER PO ONE (08:53)
[2018-06-27 09:58] LABS: Erythrocyte Sed Rate 20 mm/Hr (0-30)
--- NOTE | 2018-06-27 13:04 | CONS ---
DATE OF CONSULTATION: 06/27/2018. REQUESTING PHYSICIAN: Dr. Stout. CONSULTING SERVICE: Infectious Disease. REASON FOR CONSULTATION: Neck pain. IMPRESSION: 1. Left neck pain for about a year and worsening over the last month with increase in frequency of migraines in the same time. No fevers, chills, sweats , anorexia, or weight loss during this time. MRI shows erosive change, marrow edema at the left C1-2 facet joint. I think given her lack of systemic symptoms , a CRP of 2, that this argues against an infectious etiology. Other inflammatory conditions including gout or pseudogout are a consideration. Other noninflammatory conditions including osteoarthritis may be a consideration. She does have a history of recurrent urinary tract infections. She has had blood cultures sent, so far negative. Her inflammatory markers are negative, so I think it is less likely that she seeded her spine with a gram negative. Other considerations include indolent organisms such as a fungal infection. She does not have a good reason, including immunocompromised state to suggest that. 2. Recurrent urinary tract infection and uric acid stones. 3. Status post right knee arthroplasty 2018. 4. Hypoparathyroidism, status post parathyroidectomy. RECOMMENDATIONS: As I have a low suspicious for infection, I do not recommend a biopsy at this point, main concern being risks from the procedure with low yield even in the setting of aggressive and obvious spine infection. At this point, we will repeat a C-reactive protein tomorrow. Dr. Stout is going to ask for a rheumatologic evaluation. Assuming everything is negative at this point, the C- reactive protein has not increased, the blood cultures sent yesterday do not come back positive and that she is not having pain worsening by the day, that we could repeat a CRP early next week, follow her and get another MRI in two weeks. Dr. Stout does not think MRI with Gadolinium at this point will change the differential. She also would like to have a second opinion at a [facility] which she can do in meantime. If there is any increase in CRP or severely worsening pain, would obviously need to reassess the likelihood of infection. HISTORY OF PRESENT ILLNESS: This 68-year-old woman who has had about a year of left-sided neck pain which was always present, but she had attributed to other causes and had not put too much attention to. Then, over about the last month, it became more severe with pain turning her head to the left and an increase in her baseline migraine frequency. She had had no fevers, chills, sweats, weight loss or anorexia. Because of the neck pain, she saw Dr. Conti who had her get an MRI as an outpatient, results as outlined above. Because of the findings , she was directed to the ER. She was admitted. She had an ESR of 20, CRP of 2.1. Blood cultures were sent yesterday, they are pending, nothing is growing so far. She has had no fever while she has been here. She is in a c-spine collar and the pain is about the same, if maybe a little bit better with some Morphine. She has had no other soft tissue infection. She did have some wound healing issues with her right knee replacement. She had a cellulitis of the leg years ago. She has recurrent urinary tract infections; followed by Dr. Berkowitz in the setting of uric acid stone disease. She has not had any recent dysuria or frequency. She has no other joint symptoms. No other areas of back pain. PAST MEDICAL HISTORY: 1. Uric acid stones. 2. Urinary tract infection. 3. Migraine with aura. 4. Status post right knee arthroplasty March 2018. 5. Hyperparathyroidism, status post parathyroidectomy. 6. Hypertension. MEDICATIONS: 1. Tylenol. 2. Allopurinol. 3. Cholecalciferol. 4. Flexeril. 5. Docusate. 6. Heparin subcutaneous injection. 7. Hydrochlorothiazide. 8. Meclizine. 9. Potassium. 10. Senna. ALLERGIES: No known drug allergies. FAMILY HISTORY: Father had gout. There is no history of TB. Mother at 93 from heart failure. Father at 81 from pneumonia. SOCIAL HISTORY: She lives in [place] with her . She works in [employer] at [place]. She has not had any trips out of the area the last few weeks. REVIEW OF SYSTEMS: A 14 point review was all negative except as noted above in the history of present illness. PHYSICAL EXAM: General: She is awake and appears comfortable. Vital signs: Temperature 36.4, heart rate 60, respiratory rate 16, blood pressure 143/67, oxygen saturation 98 percent on room air. Neurologic: She is oriented times three. Follows commands. Answers questions appropriately. HEENT: There is no conjunctival hemorrhage. Oropharynx without lesions. Neck: She is in a cervical spine collar which I did not remove. Heart: Regular rate and rhythm without murmurs, rubs, or gallops. Lungs: Clear to auscultation bilaterally. Abdomen: Soft, nontender, nondistended. There are bowel sounds present. Skin: There is no rash or splinter hemorrhage. Musculoskeletal: There is no thoracic or lumbar spine tenderness to palpation. There is no joint synovitis. DIAGNOSTIC STUDIES/LAB DATA: White blood cell count 6, hemoglobin 13, platelets 212, creatinine 1.1. Urinalysis showed leukocyte esterase, no blood. Please see impressions and recommendations outlined above which I have discussed with Dr. Stout. Thank you for asking me to see Ms. Fuchs in consultation. [id number]/[facility] #: [id number] JOSI
[2018-06-27] MEDS ORDERED: Ibuprofen TAB* 600 MG PO PRN (15:23)
--- NOTE | 2018-06-27 15:33 | PN ---
Subjective Date of Service: 06/27/18 Interval History: Patient is resting in bed c/o neck pain. denies chest pain or shortness of breath. denies abd pain n/v d . denies chest pain or shortness of breath. Family History: Unchanged from Admission Social History: Unchanged from Admission Past Medical History: Unchanged from Admission Objective Active Medications: Acetaminophen (Tylenol Tab*) 975 mg PO Q8H [facility] Acetaminophen/Butalbital/Caffeine (Fioricet Tab*) 1 tab PO DAILY PRN PRN Reason: MIGRAINE HEADACHE Al Hydrox/Mg Hydrox/Simethicone (Maalox Plus*) 30 ml PO Q6H PRN PRN Reason: INDIGESTION Allopurinol (Zyloprim Tab*) 300 mg PO QAM [facility] Last Admin: 06/27/18 07:53 Dose: 300 mg Cholecalciferol (Vitamin D Tab*) 1,000 units PO QAM [facility] Last Admin: 06/27/18 07:54 Dose: 1,000 units Cyclobenzaprine HCl (Flexeril Tab*) 10 mg PO TID PRN PRN Reason: SPASMS Docusate Sodium (Colace Cap*) 100 mg PO BID PRN PRN Reason: CONSTIPATION Heparin Sodium (Porcine) (Heparin Vial(*)) 5,000 units SUBCUT Q8HR [facility] Last Admin: 06/27/18 06:25 Dose: 5,000 units Hydrochlorothiazide (Hydrodiuril Tab*) 25 mg PO DAILY [facility] Last Admin: 06/27/18 07:53 Dose: 25 mg Ibuprofen (Motrin Tab*) 600 mg PO Q8H PRN PRN Reason: PAIN Meclizine HCl (Antivert Tab*) 12.5 mg PO DAILY PRN PRN Reason: MIGRAINE HEADACHE Morphine Sulfate (Morphine Vial*) 2 mg IV Q4H PRN PRN Reason: PAIN - MILD Last Admin: 06/27/18 07:53 Dose: 2 mg Ondansetron HCl (Zofran Inj*) 4 mg IV Q4H PRN PRN Reason: NAUSEA/VOMITING Oxycodone/Acetaminophen (Percocet 5/325 Tab*) 1 tab PO Q4H PRN PRN Reason: Pain Potassium Bicarbonate (K Lyte*) 25 meq PO BID [facility] Last Admin: 06/27/18 07:54 Dose: 25 meq Senna (Senokot Tab*) 1 tab PO BID PRN PRN Reason: CONSTIPATION Vital Signs - 8 hr 06/27/18 06/27/18 06/27/18 07:53 07:56 08:00 Temperature 97.5 F Pulse Rate 64 Respiratory 14 16 18 Rate Blood Pressure 143/67 (mmHg) O2 Sat by Pulse 98 Oximetry 06/27/18 09:45 Temperature Pulse Rate Respiratory 12 Rate Blood Pressure (mmHg) O2 Sat by Pulse Oximetry Oxygen Devices in Use Now: None Appearance: alert and oreinted x 3 sitting in bed, no acute distress Eyes: No Scleral Icterus Ears/Nose/Mouth/Throat: Clear Oropharnyx, Mucous Membranes Moist Neck: NL Appearance and Movements; NL JVP Respiratory: Symmetrical Chest Expansion and Respiratory Effort, Clear to Auscultation Cardiovascular: NL Sounds; No Murmurs; No JVD, No Edema Abdominal: NL Sounds; No Tenderness; No Distention Extremities: No Edema, No Clubbing, Cyanosis Skin: No Rash or Ulcers Neurological: Alert and Oriented x 3 Nutrition: Taking PO's Result Diagrams: 06/26/18 16:45 06/27/18 04:57 Assess/Plan/Problems-Billing Assessment: - Patient Problems (1) Neck pain Current Visit: Yes Status: Acute Code(s): M54.2 - CERVICALGIA SNOMED Code( s): 79708634 Comment: Unclear - MJ collar per Neurosurgery recommendations- this to stay inplace until follow up in 2 weeks, no driving, lifting or bending per neurosurgery - tylenol/ ibuprofen as needed for pain - ID was consulted and recommended repeat CRP in the AM (2) Hypokalemia Current Visit: Yes Status: Acute Code(s): E87.6 - HYPOKALEMIA SNOMED Code( s): 20090557 Comment: Repeat BMP in the AM KCL 40 meq po today in addition to scheduled potassium (3) DVT prophylaxis Current Visit: Yes Status: Acute Code(s): BJN3799 - SNOMED Code(s): 037633816 Comment: heparin subQ (4) Full code status Current Visit: Yes Status: Acute Code(s): Z78.9 - OTHER SPECIFIED HEALTH STATUS SNOMED Code(s): 894346400 Status and Disposition: possible discharge home in the AM
[2018-06-27] MEDS: Acetaminophen TAB* 325 MG PO SCH (16:24)
--- NOTE | 2018-06-27 16:37 | PN ---
Progress Note - Progress Note Date of Service: 06/27/18 SOAP: Subjective: [] No events ON. Tolerates PO well. Voids, Ambulates. Tolerates MJ collar well. Neck pain under control. Objective: []VSS, Afebrile AAOx3, JR, CN II-XII grossly intact Motor 5/5 all extremities Sensory grossly intact to light touch Assessment: [] 68 yof neck pain, Left C1-2 facet arthritis Plan: []Discussed with Dr Jacome regarding possibility of septic arthritis. Based on her clinical presentation and the lack of increased WBC, CRP, suspicion for septic arthritis is low. Given the low yield of a biopsy and the low suspicion for infection, in combination of increased risk of the procedure we would hold off CT guided biopsy for now. Discussed with patient regarding the plan. Patient is in agreement with no biopsy and understands the limitations of each approach and possible outcomes. She would also prefer to avoid biopsy for now. She understands the possibility of other etiologies of the arthritis such as neoplasm. Will obtain BC and Dr Jacome will follow patient with serial CRP, starting tomorrow. Discussed with Dr Pritchett. Based on the appearance of the MRI and CT characteristics septic arthritis cannot be ruled out. Per Dr Pritchett, no other tests available to assist in the DDx for now. No evidence of tumor. Reumatology consult may be considered for evaluation for systemic rheumatic diseases or crystal induced arthritis. Maintain MJ collar for now. Consider shorter front piece to fit the patient. Follow up in the office in 2 weeks with new MRI of C spine. Patient would like to have a second opinion in [facility] and has made arrangements [facility]. Appreciate IM, ID, Neurology care. Grant Stout MD
[2018-06-28] MEDS: Acetaminophen TAB* 325 MG PO SCH ×2 (02:59→08:16)
[2018-06-28 05:37] LABS: BUN/Creatinine Ratio 22.8 (8-20); C Reactive Protein 3.27 mg/L (<8.01); Calcium 10.2 mg/dL (8.6-10.3); EGFR African American 52.9 (>60); EGFR Non-African American 43.7 (>60); Potassium 4.5 mmol/L (3.5-5.0)
[2018-06-28] MEDS: Heparin VIAL(*) 5000 UNITS/ML VIAL (FIVE THOUSAND) SUBCUT SCH (06:03)
[2018-06-28] MEDS: Hydrochlorothiazide TAB* 25 MG PO SCH (08:16)
[2018-06-28] MEDS: Allopurinol TAB* 300 MG PO SCH (08:17)
[2018-06-28] MEDS: Cholecalciferol TAB* 1000 UNITS PO SCH (08:17)
[2018-06-28] MEDS: Potassium EFFERVESCENT TAB* 25 MEQ TAB.EFF PO SCH (08:18)
[2018-06-28 08:52] LABS: Magnesium 1.8 mg/dL (1.9-2.7)
--- NOTE | 2018-06-28 09:09 | PN ---
Progress Note - Progress Note SOAP: Erin seen, examined, discussed with Yolanda Goetz NP I agree with her full note above; in addition. Impression: 1. C spine facet joint change on MRI with neck pain; I think septic facet joint less likely with no systmeic symptoms and normal inflammatory markers. Indolent infection possible but less likely. Will follow CRP and symptoms closely in event they change in a way that suggests more likely to be infected. In the meantime she will be seen at [facility] by neurosurgery. Alternatives include biopsy which is low yield and associated with some risk. Open procedure may be a consideration and she would like to see what options are available in [place]. <Jackie GRAY,Maverick Rawls. - Last Filed: 06/28/18 14:45> - Progress Note Date of Service: 06/28/18 SOAP: Subjective: Ms. Fuchs is a 68 yo female with PMH significant for migraine with aura, HTN , hyperparathyroidism s/p parathyroidectomy, and recurrent UTI with uric acid stones who presented to the emergency room due to an abnormal MRI and concern for septic arthritis of the C spine. No elevation in CRP, ESR, afebrile and no leukocytosis. Denies fever, chills, shortness of breath, or urinary symptoms. She states that her neck pain is improved while in the [place] J collar. She states that she has baseline numbness and tingling in her legs due to neuropathy. She states that she has not moved her bowels since her admission (2 days), but doesn't feel constipated and is passing flatus. Her states that they are going to go to [facility] after discharge for a second opinion. Objective: Vital Signs 06/28/18 06/28/18 03:53 07:24 Temperature 97.4 F 98.3 F Pulse Rate 63 67 Respiratory 16 18 Rate Blood Pressure 137/63 136/73 (mmHg) O2 Sat by Pulse 98 98 Oximetry Physical Exam General: NAD, laying in bed Neurological: Alert and Oriented x4. Good strength to bilateral LEs HEENT:[place] J collar in place. Mucous membranes moist Cardiovascular: Heart rate regular, no murmur Respiratory: Lung sounds clear bilateral Abdominal: Bowel sounds present, abdomen soft and non tender Musculoskeletal: Moves all extremities Skin: No rashes on the exposed skin Laboratory Tests 06/26/18 06/28/18 16:45 04:58 ESR 20 Sodium 141 Potassium 4.5 Chloride 104 Carbon Dioxide 30 BUN 28 H Creatinine 1.23 H Glucose 123 H C-Reactive Protein 3.27 Assessment: 1. Left neck pain. MRI shows C1-C2 facet arthritis with possible bone marrow edema. Neck CTA reveled normal cervical vasculature, possible erosion of the left side of the C2 vertebral body, and arthritic changes. No elevation in inflammatory markers, afebrile. She is not immunocompromised and low suspicion for infection. 2. Recurrent UTI and uric acid stones 3. Status post right total knee arthroplasty in 2018 4. Hypoparathyroidism, S/P parathyroidectomy Plan: 1. No plans for biopsy at this time in the setting of no obvious spine infection. No antibiotics needed at this time. Plan for follow up with Dr. Mejia in 1-2 weeks, followup labs in 1 week (CBC, CRP, CMP). <Tonia Worley - Last Filed: 06/28/18 18:53>
[2018-06-28 13:46] VITALS: BP 145/70
--- NOTE | 2018-06-29 02:11 | DS ---
CC: Dr. Quang Layton; Dr. Stout; Dr. Mejia* DISCHARGE SUMMARY: DATE OF ADMISSION: 06/26/18 DATE OF DISCHARGE: 06/28/18 PROVIDER: Sheryl Mack NP PRIMARY CARE PROVIDER: Dr. Quang Layton. ATTENDING PHYSICIAN WHILE IN THE HOSPITAL: Dr. Willa Moreno* (dictated by Sheryl Mack NP). PRIMARY DIAGNOSES: 1. Neck pain. 2. Hypokalemia. 3. Hypomagnesia. SECONDARY DIAGNOSES: 1. Arthritis. 2. History of migraines. 3. Hypertension. 4. History of chronic kidney disease. 5. History of gout. 6. History of kidney stones. STUDIES COMPLETED WHITE IN THE HOSPITAL: 1. She had a CT of the neck. Radiologist's impression: Normal CT of the neck ; slight right thyroid lobe nodule, no followup indicated. 2. She had a cervical spine x-ray. Radiologist's impression: Limited range of motion, negative for facet subluxation at any level, degenerative spondylosis. DISCHARGE MEDICATIONS: No new home medications. Continued home medicines: 1. Tylenol 975 mg p.o. q.8 hours as needed for pain. 2. Ibuprofen 400 mg p.o. q.8 hours as needed for pain. 3. Vitamin D 1000 units p.o. q.a.m. 4. Butalbital/acetaminophen/caffeine 1 tab p.o. p.r.n. migraines. 5. Allopurinol 300 mg p.o. q.a.m. 6. Meclizine 12.5 mg p.o. daily p.r.n. dizziness. 7. Hydrochlorothiazide 25 mg p.o. bedtime. 8. Multivitamin 1 p.o. daily. 9. Zofran 4 mg p.o. q.6 hours as needed for nausea. 10. Potassium bicarbonate 25 mEq p.o. b.i.d. HISTORY OF PRESENT ILLNESS AND HOSPITAL COURSE: Ms. Fuchs is a 68-year-old female with past medical history significant for hypertension, migraines, arthritis, who presented to the emergency room after having an abnormal cervical spine MRI that was done by Dr. Conti. The patient states that about a year ago she developed neck pain and shoulder pain. She went to a nurse practitioner who prescribed muscle relaxers at that time. Over the past 1-1/2 months, it has gotten progressively worse on the left side of her neck, radiating up. She states in the past few weeks she has been getting migraines daily, sometimes twice a week. Normally, she gets migraines twice a month with an aura. So she followed up with Dr. Conti in regards to the migraines and told him about her neck pain. He scheduled her to get a brain and cervical MRI. Due to the abnormal findings on the cervical spine and concern for septic arthritis at C1 and C2, he recommended the patient go to the emergency room and be evaluated by Dr. Stout from Neurosurgery. The patient was seen by Dr. Stout in the emergency room and he recommended [place] J collar and workup for concern of septic arthritis. She denies any fevers. She denies any recent URI symptoms. She denies any chest pain, shortness of breath. She had no complaints other than neck pain and increased frequency of migraines. Due to the concern of septic arthritis, she was seen in consultation by Infectious Disease during this hospitalization. Given that patient had a normal CRP with a negative white count and was afebrile, it was low differential to have septic arthritis in her neck. It was discussed between Dr. Stout and Dr. Mejia the need to proceed with biopsy of the neck, and at this time, it was deemed not necessary to proceed with biopsy of the neck as it does not appear the patient has septic arthritis of the neck. There was concern that this could be gout versus pseudogout versus arthritis and the recommendation was made that the patient follow up with Rheumatology for further workup to this being a cause of gout or pseudogout or arthritis. The patient was placed in a [place] J collar and she reports that the pain has improved. She was seen by Dr. Stout, who has instructed her not to drive, lift, or bend x2 weeks and to leave the [place] J collar in place until she follows up with him in his office in 2 weeks. At that time, she will have a repeat MRI per Dr. Stout' recommendations. She was also seen in consultation by Dr. Mejia who has recommended repeat CBC , CRP, and CMP and follow up in the office in approximately 1 week. The patient and her have expressed they would like a second opinion and they will seek their second opinion in [facility] at the [facility] [place]. The patient has signed medical records release for her records to be faxed to the [facility] [place]. Given the negative workup for septic arthritis, at this time, Ms. Fuchs is stable for discharge home. REVIEW OF SYSTEMS: The patient does continue to complain of neck pain. She denies any nausea, vomiting, or diarrhea. Denies any headache. She denies any dizziness. Denies any chest pain or shortness of breath. Denies any leg weakness or upper extremity weakness. Denies any difficulties with her speech. PHYSICAL EXAMINATION: Vital signs are as follows: Blood pressure was 145/70, temperature 97.8, respirations 14, heart rate 71, O2 saturation 98%. General: At this time, Ms. Fuchs is a 68-year-old female. She is resting in her bed. She is alert and oriented x3. HEENT: Head is atraumatic and normocephalic. Eyes: EOMs are intact. Sclerae anicteric and not pale. Oral mucosa appeared to be moist. Neck: [place] J collar is in place. Lungs are clear to auscultation bilaterally. No wheezes, rales, or rhonchi. Cardiac: S1 and S2. Regular rate and rhythm. No murmurs, rubs, or gallops. Abdomen is soft and nontender. Bowel sounds are present x4. Extremities: She is able to move all 4 extremities with 5/5 strength. Neurologic: She is awake, alert, and oriented x3. Handgrips are equal. Speech is clear. Thought process is intact. There are no gross focal deficits noted. Skin is intact. DISCHARGE PLAN: Ms. Fuchs will be discharged back home. Activity: As tolerated. Dr. Stout has specifically instructed the patient no driving x2 weeks, no bending or lifting x2 weeks, and to leave [place] J collar in place until seen in followup in 2 weeks in his office. Diet: She can resume a regular diet. 1. Neck pain. It is unclear the source of her neck pain at this time. It has been ruled out this is unlikely septic arthritis as the patient does not have a white count, she has been afebrile, and her CRP is within normal limits and repeat CRP remained within normal limits. She was seen in consultation by Neurosurgery and Infectious Disease who also agreed that this is unlikely septic arthritis at this time. They have recommended she follow up with the maintenance porter to rule out gout versus pseudogout. The patient is also requesting a second opinion. She will follow up with [facility] in [facility] for her second opinion. In the meantime, she will follow up with Dr. Stout in 2 weeks with a repeat MRI. She will follow up with Dr. Mejia in 1 to 2 weeks. She will have a repeat CBC, CMP, and CRP. For pain control, she can continue Tylenol and ibuprofen. 2. Chronic kidney disease. The patient should use caution with excessive use of ibuprofen as this is processed the through the kidneys and she should avoid nephrotoxic medications. 3. Hypertension. She should continue her hydrochlorothiazide as previously prescribed. 4. Followup. The patient should follow up with Dr. Stout in 2 weeks. She should follow up with Dr. Mejia in 1 to 2 weeks. She should follow up with her primary care provider in 1 to 2 weeks. She should follow up with Dr. Dawkins from Rheumatology in 1 to 2 weeks. I attempted to contact the office which was unsuccessful. I will attempt to contact the office again to get the patient an appointment time. 5. The patient should return to the emergency room for any increasing neck pain , weakness or numbness in her extremities, weakness on one side, difficulty speaking, facial drooping, chest pain, shortness of breath, or any other concerning symptoms. This is summarization of her hospitalization. For further details, please see the entire medical record. CONDITION ON DISCHARGE: Stable. DISPOSITION: Home. TIME SPENT: Time spent on this discharge was 60 minutes, greater than half of that time was spent at the bedside discussing discharge plans and instructions. I have discussed this with my attending Dr. Willa Moreno, she is in agreement with my plan. SHERYL MACK, ANISH [id number]/[facility] #: [id number] JOSI
== END 2018-06-28 13:40 | disposition home or self-care (01) ==
LOC: ED 16:05 → INTOOBSV 21:44 → SSU 21:44
PROVIDERS: ADMIT Pediatrics; ATTEND Internal Medicine
DX: M54.2 Cervicalgia (principal); E87.6 Hypokalemia; E83.42 Hypomagnesemia; M19.91 Primary osteoarthritis, unspecified site; I10 Essential (primary) hypertension; N18.9 Chronic kidney disease, unspecified; M10.9 Gout, unspecified; Z87.442 Personal history of urinary calculi; E07.9 Disorder of thyroid, unspecified; G47.30 Sleep apnea, unspecified; Z85.820 Personal history of malignant melanoma of skin; Z96.651 Presence of right artificial knee joint
CPT/HCPCS: 36415; 70498; 72040; 80048; 80053; 81003; 81015; 83735; 85025; 85652; 86140; 87040; 87086; 96372; 96374; 99284; A9270-GY; G0378; J1644; J1885; J2270; J3475; Q9967

== ENCOUNTER 2018-08-28 08:53 | Day surgery (SDC) | payer OTHER ==
[~2018-08-28 08:53] MED LIST changes: +Acetaminophen TAB* 325 MG PO PRN; -Buffered Lidocaine 0.9% SYRIN* 5 ML/SYR SYRINGE INTRADERM ONE; +Buffered Lidocaine 1% SYRIN* 1 ML/SYRINGE INTRADERM ONE; -Ondansetron TAB* 4 MG PO ONE; -Tranexamic Acid 1,000 MG in NS 0.9% 50 ML* (outpatient use) IV SCH
[2018-08-28] MEDS ORDERED: Midazolam* 1 MG/ML 2 ML VIAL (2 MG) ONE ×2 (10:34→10:37)
[2018-08-28 11:08] VITALS: BP 126/71
[2018-08-28] MEDS ORDERED: Cyclopentolate 1% OPTH.SOL* 2 ML BTL ONE (13:58)
[2018-08-28] MEDS ORDERED: Tetracaine 0.5% OPTH.SOL 4 ML* 1 DROP BTL ONE (13:58)
[2018-08-28] MEDS ORDERED: Phenylephrine OPHTH SOL 2.5%* 2 ML ONE (13:58)
[2018-08-28] MEDS ORDERED: Neomycin/Polymy/Dex OPHTH.OIN* 3.5 GM ONE (13:58)
[2018-08-28] MEDS ORDERED: Ketorolac 0.5% OPHTH (NF) 0.5 % 5 ML BTL ONE (13:58)
[2018-08-28] MEDS ORDERED: Tropicamide 1% OPTH.SOL* BTL ONE (13:58)
[2018-08-28] MEDS ORDERED: Lidocaine 1%* 5 ML VIAL ONE (13:58)
[2018-08-28] MEDS ORDERED: BSS OPTH.SOL* BTL ONE (13:59)
--- NOTE | 2018-08-28 15:15 | OP ---
AMENDED REPORT FOR CORRECTIONS PER DIMAS PER DR. CALVILLO DATE OF OPERATION: 08/28/18 - [facility] DATE OF : 54 SURGEON: Grover Calvillo MD HUMAN RELATIONS TEACHER: None. ANESTHESIA: Topical with intravenous sedation. PRE-OP DIAGNOSIS: Cataract, status post LASIK surgery, left eye. POST-OP DIAGNOSIS: Cataract, status post LASIK surgery, left eye. OPERATIVE PROCEDURE: Phacoemulsification and cataract extraction with posterior chamber intraocular lens implant, left eye, use of ORA. COMPLICATIONS: None. BLOOD LOSS: None. DESCRIPTION OF PROCEDURE: The patient was brought to the operating room and received intravenous sedation. She received a drop of tetracaine to her left eye. The patient was prepped and draped in the usual sterile fashion for ophthalmic surgery and attention was directed to the left eye where a speculum was placed. Faint LASIK scar could be seen in the mid peripheral cornea. A paracentesis was created at the 5 o'clock position and 0.1 cc of 1% preservative -free lidocaine was injected into the anterior chamber followed by DisCoVisc. The eye was digitally stabilized while a 2.75-mm keratome was used to create a triplanar clear corneal incision peripherally at the 3 o'clock position. A cystotome and Utrata forceps were used to create a continuous curvilinear capsulorrhexis. BSS on a cannula was used to hydrodissect the lens from the capsule. Phacoemulsification was performed in a beyjpy-unj-bylzhtw technique to create four fragments which were removed. Residual cortical material was removed with irrigation and aspiration. The capsular bag was polished. The capsule and anterior chamber were filled with Provisc. The eye pressure was measured with intraoperative tonometer. The surface of the eye was lubricated and the ORA instrument was employed. An AU00T0 19.5 diopter lens was selected in order to achieve an approximate -2 diopter plan myopia. The lens was inserted into the eye. Viscoelastic was removed with irrigation and aspiration. BSS on a cannula was used to hydrate the corneal stroma and seal the wound. At the end of the case, the pupil was round. The lens was centered and stable. The eye pressure appeared normal and the wound was watertight. The speculum was removed and topical Maxitrol ointment was placed on the surface of the eye. The eye was closed, patched and shielded and the patient was sent to the recovery room in stable condition with post operative instructions and followup appointment given. [id number]/[facility] #: [id number] JOSI
== END 2018-08-28 11:09 | disposition home or self-care (01) ==
LOC: OREAST 08:53
PROVIDERS: ATTEND Ophthalmology
DX: H25.12 Age-related nuclear cataract, left eye (principal); I10 Essential (primary) hypertension; Z98.84 Bariatric surgery status; M54.2 Cervicalgia
CPT/HCPCS: A9270-GY; J2250; V2632

== ENCOUNTER 2018-09-04 08:24 | Day surgery (SDC) | payer OTHER ==
[~2018-09-04 08:24] MED LIST changes: +Cyclopentolate 1% OPTH.SOL* 2 ML BTL ONE; +Ketorolac 0.5% OPHTH (NF) 0.5 % 5 ML BTL ONE; +Lidocaine 1%* 5 ML VIAL ONE; +Neomycin/Polymy/Dex OPHTH.OIN* 3.5 GM ONE; +Phenylephrine OPHTH SOL 2.5%* 2 ML ONE; +Tetracaine 0.5% OPTH.SOL 4 ML* 1 DROP BTL ONE; +Tropicamide 1% OPTH.SOL* BTL ONE
[2018-09-04] MEDS ORDERED: fentaNYL* 50 MCG/ML 2 ML VIAL (100 MCG VIAL) ONE (09:15)
[2018-09-04] MEDS ORDERED: Midazolam* 1 MG/ML 2 ML VIAL (2 MG) ONE (09:16)
[2018-09-04 10:23] VITALS: BP 134/58
--- NOTE | 2018-09-04 11:39 | OP ---
DATE OF OPERATION: 09/04/18 [facility] DATE OF : 54 SURGEON: Grover Calvillo MD ATMOSPHERIC CHEMIST: None. ANESTHESIA: Topical with intravenous sedation. PRE-OP DIAGNOSIS: Cataract, status post LASIK, right eye. POST-OP DIAGNOSIS: Cataract, status post LASIK, right eye. OPERATIVE PROCEDURE: Phacoemulsification and cataract extraction with posterior chamber intraocular lens implant, right eye. COMPLICATIONS: None. BLOOD LOSS: None. DESCRIPTION OF PROCEDURE: The patient was brought to the operating room and received intravenous sedation. A drop of Tetracaine was placed in her right eye. The patient was prepped and draped in the usual sterile fashion for ophthalmic surgery, and attention was directed to the right eye, where a speculum was placed. Well- healed LASIK scars were visible. A paracentesis was created at the 11 o'clock position and 0.1 cc of 1% preservative-free lidocaine was injected into the anterior chamber followed by DisCoVisc. The eye was digitally stabilized while a 2.75-mm keratome was used to create a triplanar clear corneal incision at the 9 o'clock position with care taken to create this incision peripheral to the LASIK scars. A continuous curvilinear capsulorrhexis was created with a cystotome and Utrata forceps. BSS on a cannula was used to hydrodissect the lens from the capsule. Phacoemulsification was performed in a [id number]-now-sgbqfil technique to create 4 fragments which were removed. Residual cortical material was removed with irrigation and aspiration. The capsular bag was polished. The eye was inflated with Provisc. The eye pressure was measured with intraoperative tonometer. The surface of the eye was irrigated. The ORA instrument was employed. The lens choice was guided toward a 17.5 diopter lens. Thus, an AU00T0 17.5 diopter lens was inserted into the capsule of the right eye. Irrigation and aspiration were performed to remove viscoelastic from the eye. BSS on a cannula was used to hydrate the corneal stroma and seal the wound. At the end of the case, the pupil was round and the lens was centered. The eye pressure was normal and the wound was watertight. The speculum was removed and topical Maxitrol ointment was placed on the surface of the eye. The eye was closed, patched and shielded and the patient was sent to the recovery room in stable condition with postop instructions and followup appointment given. [id number]/[facility] #: [id number] JOSI
== END 2018-09-04 10:29 | disposition home or self-care (01) ==
LOC: OREAST 08:24
PROVIDERS: ATTEND Ophthalmology
DX: H25.11 Age-related nuclear cataract, right eye (principal); Z85.828 Personal history of other malignant neoplasm of skin; Z85.820 Personal history of malignant melanoma of skin; I10 Essential (primary) hypertension; Z68.30 Body mass index [BMI] 30.0-30.9, adult
CPT/HCPCS: A9270-GY; J2250; J3010; V2632